=== PATIENT | female | born 1935 | race Caucasian/White ===

== ENCOUNTER 2020-01-12 15:56 | Outpatient (CLI) | payer OTHER, SELFPAY ==
--- NOTE | ~2020-01-12 | CT_ITS ---
EXAMINATION:CT chest wo con DATE: 01/12/2020 16:17 INDICATION: Shortness of breath. Atherosclerosis of aorta. TECHNIQUE: Computed tomography (CT) of the chest was performed without intravenous contrast. Automate d exposure control and iterative reconstruction technique were employed. The dose-length product (DLP ) was 130.25 mGy-cm. COMPARISON: CT abdomen and pelvis 03/24/2018 FINDINGS: There is mild emphysema. There is mild atelectasis bilaterally. Calcified right lung nodule s and calcified right hilar lymph nodes are consistent with old granulomatous disease. No pleural eff usion. The heart size is normal. There are coronary artery calcifications. No pericardial effusion. 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 Calcifications in the spleen ar e consistent with old granulomatous disease. There is mild aortic atherosclerosis. No aneurysm. There is an 8 mm hemorrhagic cyst in left kidney. There is thoracic kyphosis and mild spondylosis. IMPRESSION: 1. Mild emphysema. 2. Mild aortic atherosclerosis. Reviewed, dictated and finalized at location A.
== END 2020-01-12 15:57 | disposition home or self-care (01) ==
PROVIDERS: PCP Family Medicine; Visit Provider Physician Assistant
DX: I70.0 Atherosclerosis of aorta (principal); R06.02 Shortness of breath; Z87.891 Personal history of nicotine dependence; J43.9 Emphysema, unspecified
CPT/HCPCS: 71250

== ENCOUNTER 2020-02-24 09:32 | Outpatient (CLI) | payer OTHER, SELFPAY ==
[2020-02-24 10:00] VITALS: PULSE 84; O2SAT 92
[2020-02-24 10:05] VITALS: PULSE 92; O2SAT 86
[2020-02-24 10:10] VITALS: PULSE 95; O2SAT 87
[2020-02-24 10:15] VITALS: PULSE 83; O2SAT 90
[2020-02-24 10:30] VITALS: PULSE 86; O2SAT 91
--- NOTE | 2020-02-24 10:58 | HOMEO2EVAL ---
Home Oxygen Evaluation RC: Home Oxygen (O2) Evaluation Start: 02/24/20 10:54 Freq: Status: Active Protocol: RPE Activity Type Activity Date Activity User E-Sign Co-Sign Detail Recorded Client Recorded Date Recorded By Document 02/24/20 10:00 DJO [email or web address] 02/24/20 10:58 DJO Document 02/24/20 10:05 DJO [email or web address] 02/24/20 10:58 DJO Document 02/24/20 10:10 DJO [email or web address] 02/24/20 10:58 DJO Document 02/24/20 10:15 [email or web address] [email or web address] 02/24/20 10:58 DJO Document 02/24/20 10:30 [email or web address] [email or web address] 02/24/20 10:58 DJO 02/24/20 02/24/20 02/24/20 10:00 10:05 10:10 Home O2 Evaluation Test Phase Resting Exercise Exercise Oxygen Delivery Room Air Room Air Nasal Cannula Oxygen Flow Rate (L/min) 1 Pulse Oximetry (90-100 %) 92 86 L 87 L Pulse Rate (60-100 beats/min) 84 92 95 Activity Tolerance Rating of Perceived Dyspnea (PD) +2 Mild, Some Difficulty, Noticeable to the Observer Ambulation Distance (feet) Treatment Charges O2 Evaluation 02/24/20 02/24/20 10:15 10:30 Home O2 Evaluation Test Phase Exercise Resting Oxygen Delivery Nasal Cannula Room Air Oxygen Flow Rate (L/min) 2 Pulse Oximetry (90-100 %) 90 91 Pulse Rate (60-100 beats/min) 83 86 Activity Tolerance Fair Rating of Perceived Dyspnea (PD) Ambulation Distance (feet) 300 Treatment Charges
--- NOTE | 2020-02-26 12:39 | WPDPFTINT ---
PFT Interpretation PFT Interpretation: This PFT met all criteria for ATS standards and reproducibility FEV/FVC post bronchodilator 63% of predicted FEV1 51% or 0.86 liters FVC 54% or 1.36 liters TLC 78%of predicted or 3.68 liters RV 119% RV/TLC 66% DLCO 47% when adjusted for alveolar volume but not adjusted for hemoglobin Flow volume loops showed significant expiratory coving Impression: Moderate to severe airflow obstruction with a restrictive ventilatory defect also present. Air trapping and moderately reduced diffusion capacity also present. This is a combined obstructive/restrictive ventilatory defect. Clinical correlation is advised.
== END 2020-02-24 09:33 | disposition home or self-care (01) ==
LOC: ANHPFT 09:34
PROVIDERS: PCP Family Medicine; Visit Provider Internal Medicine Critical Care Medicine
DX: J44.9 Chronic obstructive pulmonary disease, unspecified (principal); R94.2 Abnormal results of pulmonary function studies
CPT/HCPCS: 94060; 94618; 94726; 94729

== ENCOUNTER 2020-02-26 08:30 | Outpatient (CLI) | payer OTHER, SELFPAY ==
--- NOTE | ~2020-02-26 | US_ITS ---
EXAMINATION: US venous doppler [facility] DATE: 02/26/2020 10:13 INDICATION: Acute embolism and thrombosis of unspecified deep veins of left lower limb. TECHNIQUE: Grayscale ultrasound images without and with compression and Doppler ultrasound images of the left lower extremity veins were obtained. COMPARISON: Ultrasound 07/29/2019 FINDINGS: The visualized portions of left common femoral vein, profunda (deep) femoral vein, femoral vein, popl iteal vein, peroneal veins, posterior tibial veins, and greater saphenous vein outflow are patent. IMPRESSION: 1. No deep venous thrombosis. Reviewed, dictated and finalized at location E.
== END 2020-02-26 08:31 | disposition home or self-care (01) ==
PROVIDERS: PCP Family Medicine; Visit Provider Physician Assistant
DX: I82.402 Acute embolism and thrombosis of unspecified deep veins of left lower extremity (principal)
CPT/HCPCS: 93971

== ENCOUNTER 2020-03-23 11:06 | Outpatient (CLI) | payer OTHER, SELFPAY ==
--- NOTE | ~2020-03-23 | XR_ITS ---
EXAMINATION: XR ankle RT min 3V DATE: 03/23/2020 11:29 INDICATION: Right ankle pain. TECHNIQUE: 4 views of right ankle were obtained. COMPARISON: Right ankle radiographs 07/29/2019 FINDINGS: Bone alignment is normal. No fracture. Joint spaces are normal. There is an enthesophyte at plantar aspect of calcaneal tuberosity. There is ankle soft tissue swelling. IMPRESSION: 1. No fracture. Reviewed, dictated and finalized at location A. IMPRESSION: 1. No fracture.
--- NOTE | ~2020-03-23 | US_ITS ---
EXAMINATION: US venous doppler LE RT EXAM DATE: 03/23/2020 11:55 INDICATION: Right leg pain and swelling. TECHNIQUE: Multiple grayscale, color flow and Doppler images of the right lower extremity deep venous system were obtained and reviewed. Comparison is made to prior examination from 07/29/2019. FINDINGS: The right common femoral, femoral and profunda veins demonstrate normal color flow, respira tory variation, augmentation and compressibility. Compressibility, color flow confirmed within the r ight popliteal, posterior tibial, peroneal, and proximal greater saphenous veins. There is thrombus w ithin the distal aspect of the greater saphenous vein below the knee. There is a Gaston's cyst measuri ng 4.4 x 1.2 x 2.1 cm. IMPRESSION: 1. Right greater saphenous below knee superficial venous thrombosis. 2. No right lower extremity deep venous thrombosis. Reviewed, dictated and finalized at location B.
== END 2020-03-23 11:07 | disposition home or self-care (01) ==
PROVIDERS: PCP Family Medicine; Visit Provider Family Medicine
DX: M25.579 Pain in unspecified ankle and joints of unspecified foot (principal); M79.669 Pain in unspecified lower leg; M79.89 Other specified soft tissue disorders; I82.811 Embolism and thrombosis of superficial veins of right lower extremity
CPT/HCPCS: 73610; 93971

== ENCOUNTER 2020-11-23 10:01 | Outpatient (CLI) | payer OTHER, SELFPAY ==
--- NOTE | ~2020-11-23 | US_ITS ---
EXAMINATION: US venous doppler LE RT DATE: 11/23/2020 10:38 INDICATION: Right lower limb swelling. TECHNIQUE: Grayscale ultrasound images without and with compression and Doppler ultrasound images of the right lower extremity veins were obtained. COMPARISON: Ultrasound 03/23/2020 FINDINGS: The visualized portions of right common femoral vein, profunda (deep) femoral vein, femoral vein, pop liteal vein, peroneal veins, posterior tibial veins, and greater saphenous vein outflow are patent. IMPRESSION: 1. No deep venous thrombosis. Reviewed, dictated and finalized at location B.
== END 2020-11-23 10:02 | disposition home or self-care (01) ==
PROVIDERS: PCP Family Medicine; Visit Provider Physician Assistant
DX: M79.89 Other specified soft tissue disorders (principal); Z86.718 Personal history of other venous thrombosis and embolism
CPT/HCPCS: 93971

== ENCOUNTER 2021-01-29 11:13 | Outpatient (CLI) | payer OTHER, SELFPAY ==
[2021-01-29 11:51] LABS: Basophils Percent Auto 0.6 % (0.2-1.2); Eosinophils Absolute Auto 0.3 K/mm3 (0-0.3); Eosinophils Percent Auto 3.8 % (0-4.4); Hematocrit 37.3 % (37.0-47.0); Hemoglobin 11.6 g/dL (12.0-15.0); Immature Granulocyte Absolute 0.02 K/mm3 (0.00-0.031); Immature Granulocyte Percent A 0.3 % (0-0.5); Lymphocytes Absolute Auto 2.31 K/mm3 (0.9-3.2); Lymphocytes Percent Auto 32.1 % (18.3-44.2); Mean Corpuscular HGB Conc 31.1 g/dl (32-36); Mean Corpuscular Hemoglobin 31.2 pg (26-34); Mean Corpuscular Volume 100.3 fl (80-100); Mean Platelet Volume 9.8 fl (7.4-10.4); Monocytes Absolute Auto 0.6 K/mm3 (0.1-0.6); Monocytes Percent Auto 7.6 % (2.6-8.5); Neutrophils Percent Auto 55.6 % (45.5-73.1); Platelet Count Result 225 k/mm3 (150-375); Red Blood Count 3.72 M/mm3 (4.2-5.4); Red Cell Distribution Width 14.1 % (11.5-14.5); White Blood Count 7.2 K/mm3 (4.5-10.0)
[2021-01-29 12:02] LABS: Alanine Aminotransferase 14 U/L (4-35); Albumin Level 4.2 g/dL (3.5-5.1); Alkaline Phosphatase 66 U/L (38-126); Anion Gap 10 mmol/L (8-16); Aspartate Amino Transferase 23 U/L (14-36); Bilirubin,Total < 0.1 mg/dL (0.2-1.3); Blood Urea Nitrogen 57 mg/dL (7-17); Calcium 9.2 mg/dL (8.4-10.2); Carbon Dioxide 26 mmol/L (22-30); Chloride 108 mmol/L (98-107); Cholesterol 199 mg/dL (0-200); Estimated Glomerular Filt Rate 29; Glucose 111 mg/dL (65-105); HDL Direct 40 mg/dL; Potassium 4.8 mmol/L (3.4-5.0); Sodium 144 mmol/L (137-145); Triglycerides 122 mg/dL (<150)
[2021-01-29 12:14] LABS: LDL Cholesterol Direct 104 mg/dL
[2021-02-02 11:35] LABS: Vitamin D 1,25 (OH)2 Total 32 pg/mL (18-72); Vitamin D2 1,25 (OH)2 <8 pg/mL; Vitamin D3 1,25 (OH)2 32 pg/mL
== END 2021-01-29 11:14 | disposition home or self-care (01) ==
PROVIDERS: PCP Family Medicine; Visit Provider Physician Assistant
DX: E55.9 Vitamin D deficiency, unspecified (principal); I10 Essential (primary) hypertension; Z13.220 Encounter for screening for lipoid disorders
CPT/HCPCS: 36415; 80053; 80061; 82652; 85025

== ENCOUNTER 2021-03-22 13:15 | Outpatient (CLI) | payer OTHER, SELFPAY ==
--- NOTE | ~2021-03-22 | XR_ITS ---
MODIFIED ESOPHAGRAM HISTORY: Dysphagia. TECHNIQUE: Modified barium esophagram was performed by speech pathologist under radiologist fluorosco pic guidance. This was recorded on tape. The exam was reviewed on 03/22/2021 15:37 CDT. The DAP for this procedure was 2.7 Gycm2. Fluoroscopy time is 4.2 minutes. FINDINGS: Lateral projection of the cervical spine demonstrates normal alignment. Oral stage is wit hin normal limits. During pharyngeal stage there is reduced tongue base retraction, pharyngeal squeez e as well as vallecular, piriform sinus and pharyngeal wall residue. There is no laryngeal penetratio n or aspiration. There is abnormal cricopharyngeal dysfunction. There is esophageal and pharyngeal ba ckflow.. IMPRESSION: 1: Abnormal residue during the pharyngeal stage with cricopharyngeal dysfunction and esophageal/phary ngeal backflow. No laryngeal penetration or aspiration identified. 2: Please refer to speech pathologist report for additional detail. Reviewed, dictated and finalized at location A. IMPRESSION: 1: Abnormal residue during the pharyngeal stage with cricopharyngeal dysfunctio n and esophageal/pharyngeal backflow. No laryngeal penetration or aspiration id entified. 2: Please refer to speech pathologist report for additional detail.
--- NOTE | 2021-03-22 17:27 | STOPEVAL ---
MODIFIED BARIUM SWALLOW EVALUATION: Thank you for referring Codie Duarte to [facility].? Attending Provider: Roni Hernandez, MIS DIRECTOR Evaluation Information Problem Diagnosis dysphagia; I choke a lot . Onset It started about a year ago and its getting worse Prior Level of Function Prior Swallow Level Prior Intake Method Oral Prior Diet Regular (Level 7 Diet) Prior Liquid Consistency Thin (Level 0 Diet) Modified Barium Swallow Evaluation Recent Swallowing History Reports Dysphagia Yes History of Dysphagia Yes: lump in throat 20 years ago- went away Other Related History pt denied having any significant medical history; reported having GERD History of Pneumonia No Reported Difficult Consistencies Saliva,Thin Liquids,Solids Intake Method Prior to Swallow Oral Evaluation Diet Prior to Swallow Evaluation Regular, Level 7 Liquid Consistency Prior to Swallow Thin (0) Evaluation Consistency Thin Other Amount via straw and cup Oral Preparatory Symptoms Within Functional Limits Oral Phase Symptoms Within Functional Limits Pharyngeal Phase Symptoms Coating/Pharyngeal Marley, Cricopharyngeal Dysfunction, Reduced Laryngeal Elevation, Reduced Lingual Pressure, Residue in [place],Residue/ Pyriform Sinus Severity of Vallecular Residue Moderate - 25-50 % Epiglottic Ligament Covered Severity of Pyriform Sinus Residue Moderate - 25-50 % Up Wall to Half Full 8 Point Laryngeal Penetration-Aspiration Material Does Not Enter Airway Scale Pharyngeal Phase Comments Pt presented with significant/ severe UES/cricopharyngeal dysfunction. Contents could not be cleared immediately from pharynx without many repeated dry swallows; altering head positions did not provide any assistance with clearing of the residual. Backflow occurred. No laryngeal penetration or aspiration occurred but risk is present. Cervical/Esophageal Symptoms Esophageal/Pharyngeal Backflow Solid Consistency Other Amount fruit cocktail and cracker Method of Presentation Spoon Oral Preparatory Symptoms Within F
== END 2021-03-22 13:16 | disposition home or self-care (01) ==
PROVIDERS: PCP Family Medicine; Visit Provider Nurse Practitioner Family
DX: R13.10 Dysphagia, unspecified (principal)
CPT/HCPCS: 92611

== ENCOUNTER 2021-04-24 12:52 | Outpatient (CLI) | payer OTHER, SELFPAY ==
--- NOTE | ~2021-04-24 | DEXA_ITS ---
Bone Density Report Name: Codie Duarte V Age: 85 Sex: Female Ethnicity: White Date of : 1935 Indication: postmenopausal osteoporosis; monitoring treatment; height loss; prior fracture; asthma or emphysema; hysterectomy; Referring Provider: Delmi Crow Study: Bone densitometry was performed. Exam Date: April 24, 2021 Accession number: [id number] Bone Density: Region BMD T-score Z-score Classification AP Spine (L1, L2, L4) 0.735 -2.7 0.1 Osteoporosis Femoral Neck (Left) 0.497 -3.2 -0.7 Osteoporosis Total Hip (Left) 0.581 -3.0 -0.6 Osteoporosis Total Hip Bilateral Avg 0.577 -3.0 -0.7 Osteoporosis Femoral Neck (Right) 0.449 -3.6 -1.1 Osteoporosis Total Hip (Right) 0.572 -3.0 -0.7 Osteoporosis World Health Organization criteria for BMD impression classify patients as: Normal (T-score at or above -1.0), Osteopenia (T-score between -1.0 and -2.5), or Osteoporosis (T-score at or below -2.5). 10-year Fracture Risk: FRAX not reported because: Some T-score for Spine Total or Hip Total or Femoral Neck at or below -2.5 Treated for osteoporosis Previous Exams: Region Exam Age BMD T-score BMD Change BMD Change Date g/cm2 vs Baseline vs Previous AP Spine(L1, L2, L4) 04/24/2021 85 0.735 -2.7 0.011(1.6%)# 0.055(8.0%)# 12/10/2011 76 0.680 -3.2 -0.043(-6.0%)# -0.043(-6.0%)# 09/26/2009 74 0.724 -2.8 Total Hip(Left) 04/24/2021 85 0.581 -3.0 -0.066(-10.2%) -0.049(-7.8%)# 12/10/2011 76 0.630 -2.6 -0.016(-2.5%)# -0.016(-2.5%)# 09/26/2009 74 0.647 -2.4 Total Hip(Right) 04/24/2021 85 0.572 -3.0 -0.090(-13.6%) -0.017(-2.8%)# 12/10/2011 76 0.589 -2.9 -0.073(-11.0%) -0.073(-11.0%) 09/26/2009 74 0.662 -2.3 *Denotes significance at 95% confidence level, LSC for AP Spine = 0.022 g/cm2, LSC for Total Hip = 0.027 g/cm2 Clinical Information Provided by Patient: Has had a low trauma fracture Is being treated for osteoporosis Has used the following medications: Vitamin D, Calcium Has the following medical conditions: Asthma or Emphysema, Hysterectomy Patient maximum height was 65 Menopause Age: 38 Onset of menses at age 15 Number of children 6 Impression: The patient has established osteoporosis, based on the Right Femoral Neck T-score and the existence of a prior fracture. The patient has risk factors, including: previous fracture. No significant bone loss was observed. Discussion: PATIENT UNDER TREATMENT WITH NO S
== END 2021-04-24 12:53 | disposition home or self-care (01) ==
LOC: ANHIMG 12:54
PROVIDERS: PCP Family Medicine; Visit Provider Physician Assistant
DX: Z78.0 Asymptomatic menopausal state (principal); M81.0 Age-related osteoporosis without current pathological fracture
CPT/HCPCS: 77080

== ENCOUNTER 2021-05-06 12:09 | Outpatient (CLI) | payer OTHER, SELFPAY ==
[2021-05-06 12:49] LABS: Hemoglobin 10.7 g/dL (12.0-15.0); Mean Corpuscular HGB Conc 31.5 g/dl (32-36); Mean Corpuscular Hemoglobin 32.1 pg (26-34); Mean Corpuscular Volume 102.1 fl (80-100); Mean Platelet Volume 9.5 fl (7.4-10.4); Platelet Count Result 218 k/mm3 (150-375); Red Blood Count 3.33 M/mm3 (4.2-5.4); Red Cell Distribution Width 13.9 % (11.5-14.5); White Blood Count 7.2 K/mm3 (4.5-10.0)
[2021-05-06 13:01] LABS: Albumin Level 4.2 g/dL (3.5-5.1); Anion Gap 9 mmol/L (8-16); Blood Urea Nitrogen 66 mg/dL (7-17); Calcium 9.1 mg/dL (8.4-10.2); Carbon Dioxide 25 mmol/L (22-30); Chloride 105 mmol/L (98-107); Estimated Glomerular Filt Rate 22; Glucose 99 mg/dL (65-110); Phosphorus 4.6 mg/dL (2.5-4.5); Potassium 5.1 mmol/L (3.4-5.0); Sodium 139 mmol/L (137-145)
[2021-05-06 13:04] LABS: Add Urine Microscopic? YES; Appearance Urine Cloudy (Clear); Bilirubin Urine Negative (Negative); Blood Urine Negative (Negative); Color Urine Yellow (Yellow); Glucose Urine UA Negative (Negative); Ketones Urine Negative (Negative); Leukocyte Esterase Ur 3+ LEU/UL (NEGATIVE); Nitrate Urine Negative (Negative); Protein Urine 1+ mg/dL (Negative); Specific Grav Ur 1.011 (1.001-1.035); Squamous Epithelial Cell Urine Many /hpf (Few); Total Protein Urine Random 14 mg/dL; Transitional Epi Cells Urine Rare /hpf (None Seen); Ur Ttl Prot Creatinine Ratio 0.24 mg/mg (0-0.20); Urobilinogen Urine Negative mg/dL (<2.0); WBC Urine >75 /hpf (0-3)
[2021-05-06 13:10] LABS: Complement C3 118 mg/dL (88-165)
[2021-05-06 13:29] LABS: Parathyroid Intact 190.6 pg/mL (7.5-53.5)
[2021-05-06 14:09] LABS: Erythrocyte Sedimentation Rate 69 mm/hr (0-20)
[2021-05-08 11:14] LABS: Kappa\\Lambda Light Chains 1.52 (0.26-1.65); Lambda Light Chain 46.6 mg/L (5.7-26.3)
[2021-05-09 13:56] LABS: Complement Total CH50 >60 U/mL (31-60)
== END 2021-05-06 12:10 | disposition home or self-care (01) ==
PROVIDERS: PCP Family Medicine; Visit Provider Internal Medicine Nephrology
DX: N18.4 Chronic kidney disease, stage 4 (severe) (principal)
CPT/HCPCS: 36415; 80069; 81001; 82570; 83883; 83970; 84156; 85027; 85652; 86038; 86160; 86162; 86334

== ENCOUNTER 2021-05-20 13:51 | Outpatient (CLI) | payer OTHER, SELFPAY ==
--- NOTE | ~2021-05-20 | US_ITS ---
US renal BI 05/20/2021 16:00 Procedure: Realtime transabdominal ultrasound of the kidneys and bladder. Indication: Chronic kidney disease. Comparison: CT dated 03/24/2018 Findings: There are multiple bilateral renal cysts. Largest right renal cyst measures 5.4 cm. Largest left renal cyst measures 2.4 cm. No significant hydronephrosis. There is increased cortical echotext ure bilaterally, consistent with chronic medical renal disease. There is left renal atrophy. The righ t kidney measures 8.3 cm cm and left kidney measures 6.7 cm cm. Bladder within normal limits. Bilate ral ureteral jets demonstrated. Impression: 1: Renal atrophy with multiple bilateral renal cysts. Increased renal cortical echotexture, consisten t with chronic medical renal disease. Reviewed, dictated and finalized at location B. Impression: 1: Renal atrophy with multiple bilateral renal cysts. Increased renal cortical echotexture, consistent with chronic medical renal disease.
== END 2021-05-20 13:52 | disposition home or self-care (01) ==
PROVIDERS: PCP Family Medicine; Visit Provider Internal Medicine Nephrology
DX: N18.4 Chronic kidney disease, stage 4 (severe) (principal); N28.1 Cyst of kidney, acquired
CPT/HCPCS: 76775

== ENCOUNTER 2021-05-21 03:01 | Day surgery (SDC) | payer OTHER, SELFPAY ==
[2021-05-13 10:13] VITALS: BMI 27.4
[2021-05-21 06:54] VITALS: BP 120/62; PULSE 75; RESP 20; TEMP 35.7; O2SAT 96; BMI 28.1
[2021-05-21] MEDS: LACTATED RINGERS 1,000 ML 150 ML IV CONT (07:19)
--- NOTE | 2021-05-21 07:21 | WPDANESEPPF ---
Anes - Initial Pre Proc Eval Procedure: Operation Date: 05/21/21 08:00 Proposed Procedures p Esophagogastroduodenoscopy - Brent Kraus MD Date/Time: 05/21/21 07:21 Surgeon: Brent Kraus MD Pre Op Diagnosis: dysphagia Patient Data Age: 86 Gender: F Height: 1.63 m Weight: 74.5 kg Last Vital Signs Temp 35.7 C L 05/21/21 06:54 Pulse 75 05/21/21 06:54 Resp 20 05/21/21 06:54 BP 120/62 05/21/21 06:54 Pulse Ox 96 05/21/21 06:54 Allergies Allergy/AdvReac Type Severity Reaction Status Date / Time Estrogens Allergy Severe Swelling Verified 05/21/21 06:52 alendronate sodium AdvReac Unknown vomit Verified 05/21/21 06:52 ibandronate sodium AdvReac Unknown nausea Verified 05/21/21 06:52 raloxifene AdvReac Unknown nausea Verified 05/21/21 06:52 sulfamethizole AdvReac Unknown Nausea And Verified 05/21/21 06:52 Vomiting trimethoprim AdvReac Unknown Nausea And Verified 05/21/21 06:52 Vomiting Home Medications Medication Instructions Recorded Confirmed Type melatonin 5 mg capsule 5 mg PO HS cap 06/07/19 05/13/21 History aspirin 81 mg chewable tablet 81 mg PO DAILY 09/19/20 05/13/21 History tolterodine 2 mg tablet 2 mg PO Q12H #180 tablet 10/29/20 05/13/21 Rx tiotropium 2.5 mcg-olodaterol 2.5 2 puff INHALATION DAILY 11/15/20 05/13/21 History mcg/actuation mist for inhalation apixaban 2.5 mg tablet 2.5 mg PO BID #60 tablet 11/29/20 05/13/21 Rx ropinirole 0.5 mg tablet 0.5 mg PO .qhs #90 tablet 12/06/20 05/13/21 Rx metoprolol succinate 25 mg 25 mg PO DAILY #90 tablet 03/06/21 05/13/21 Rx tablet,extended release 24 hr omeprazole 20 mg capsule,delayed 20 mg PO DAILY #90 cap 03/06/21 05/13/21 Rx release duloxetine 30 mg capsule,delayed 30 mg PO DAILY #90 cap 03/08/21 05/13/21 Rx release fluoxetine 40 mg capsule 40 mg PO DAILY #90 cap 03/08/21 05/13/21 Rx furosemide 20 mg tablet See Rx Instructions .ROUTE 04/26/21 05/13/21 Rx .COMPLEX #90 tablet hydrocodone 10 mg-acetaminophen 1 tablet PO Q8H PRN #90 tablet 05/06/21 05/13/21 Rx 325 mg tablet lisinopril 20 mg PO DAILY 05/13/21 05/13/21 History Patient hx anesthesia problems: none Family hx anesthesia problems: none Results Review: All pre-operative results and documents have been reviewed as part of the pre-operative evaluation. [facility] Past Medical History Medical History Chronic pain disorder CKD (chronic kidney disease) stage 3, GFR 30-59 ml/min COPD (chronic obstructive pulmonary disease) GERD (gastroesophageal reflux disease) History of fracture of left ankle History of nicotine dependence Hypertensive kidney disease with chronic kidney disease Incontinence in female Major depressive disorder, recurrent, moderate Mixed hyperlipidemia Old [place] (myocardial infarction) Opioid dependence Osteoporosis PUD (peptic ulcer disease) Surgical History Surgical History Status post open reduction with internal fixation (ORIF) of fracture of ankle Family History Family History Mother Cerebrovascular accident, Onset Age: 61 Patient's mother is Other Family history of arthritis Hypertension Social History Social History Social History: Smoking packs per day: 1 Smoking cigarettes per day: 20.0 Years smoked: 25 Smoking pack-years: 25.00 Smoking status: Former smoker Tobacco type: cigarettes Second hand tobacco smoke exposure: No Smoking end date: 08/03/85 Alcohol intake: former Substance use: never Substance use type: does not use Living arrangements: with family Gender identity (if verbalized by the patient): Female Sexual Orientation (if Verbalized by the Patient): Straight or Heterosexual Spiritual care concerns: No
--- NOTE | 2021-05-21 07:52 | WPDHPUPDATE1 ---
History and Physical Update Update Date/Time: 05/21/21 07:52 History and Physical has been reviewed, including an updated exam of the patient. There are NO changes in the patient's condition. Risks, benefits, and alternatives have been discussed and questions answered. Patient agrees to proceed with procedure.
[2021-05-21] MEDS: BENZOCAINE (*SP) 60 ML SPRAY CAN (HURRICAINE) 1 SPRAY MUCOUS MEM (08:00)
[2021-05-21 08:11] VITALS: BP 95/46; PULSE 64; RESP 22; O2SAT 100
[2021-05-21 08:21] VITALS: BP 111/60; PULSE 67; RESP 21; O2SAT 100
[2021-05-21 08:31] VITALS: BP 102/48; PULSE 64; RESP 18; O2SAT 100
== END 2021-05-21 08:42 | disposition home or self-care (01) ==
PROVIDERS: PCP Family Medicine; Visit Provider Internal Medicine Gastroenterology
PROC: 0DJ08ZZ Inspection of Upper Intestinal Tract, Via Natural or Artificial Opening Endoscopic (ICD-10-PCS; CPT 43235; principal; 2021-05-21 08:00)
DX: R13.10 Dysphagia, unspecified (principal); K20.90 Esophagitis, unspecified without bleeding; K29.70 Gastritis, unspecified, without bleeding; K21.9 Gastro-esophageal reflux disease without esophagitis; K44.9 Diaphragmatic hernia without obstruction or gangrene; K27.9 Peptic ulcer, site unspecified, unspecified as acute or chronic, without hemorrhage or perforation; I12.9 Hypertensive chronic kidney disease with stage 1 through stage 4 chronic kidney disease, or unspecified chronic kidney disease; N18.30 Chronic kidney disease, stage 3 unspecified; J44.9 Chronic obstructive pulmonary disease, unspecified; J96.10 Chronic respiratory failure, unspecified whether with hypoxia or hypercapnia; E78.2 Mixed hyperlipidemia; M81.0 Age-related osteoporosis without current pathological fracture; G89.29 Other chronic pain; F33.8 Other recurrent depressive disorders; F11.20 Opioid dependence, uncomplicated; Z79.01 Long term (current) use of anticoagulants; Z87.891 Personal history of nicotine dependence; Z86.718 Personal history of other venous thrombosis and embolism; Z99.81 Dependence on supplemental oxygen
CPT/HCPCS: 43248; 43239; 88305; J2704; J7120

== ENCOUNTER 2021-06-19 14:09 | Outpatient (CLI) | payer OTHER, SELFPAY ==
[2021-06-19 15:24] LABS: Anion Gap 6 mmol/L (8-16); Blood Urea Nitrogen 49 mg/dL (7-17); Calcium 9.1 mg/dL (8.4-10.2); Carbon Dioxide 30 mmol/L (22-30); Chloride 103 mmol/L (98-107); Estimated Glomerular Filt Rate 25; Glucose 98 mg/dL (65-110); Phosphorus 4.3 mg/dL (2.5-4.5); Sodium 139 mmol/L (137-145)
[2021-06-19 15:29] LABS: Add Urine Microscopic? YES; Appearance Urine Cloudy (Clear); Bacteria Urine Trace /hpf; Bilirubin Urine Negative (Negative); Blood Urine Negative (Negative); Color Urine Yellow (Yellow); Glucose Urine UA Negative (Negative); Ketones Urine Negative (Negative); Leukocyte Esterase Ur 3+ LEU/UL (NEGATIVE); Mucus Urine Rare /lpf; Nitrate Urine Negative (Negative); Protein Urine Negative (Negative); Squamous Epithelial Cell Urine Many /hpf (Few); Urobilinogen Urine Negative mg/dL (<2.0); WBC Urine 31-50 /hpf (0-3)
== END 2021-06-19 14:10 | disposition home or self-care (01) ==
LOC: ANHLAB 14:24
PROVIDERS: PCP Family Medicine; Visit Provider Internal Medicine Nephrology
DX: N18.4 Chronic kidney disease, stage 4 (severe) (principal)
CPT/HCPCS: 36415; 80069; 81001

== ENCOUNTER 2021-07-03 11:53 | Outpatient (NON) | payer OTHER, SELFPAY ==
[2021-07-08 17:11] LABS: Albumin 46 %; Measured Kappa Chains 1.29 mg/dL (<2.00); Measured Lambda Chains <1.00 mg/dL (<2.00); Pro/Creat Ratio 147 mg/g creat (<=114); Total Kappa Chains 23.22 mg/24 h
[2021-07-12 13:59] LABS: Protein,total, 24 Hr Ur 162 mg/24h
== END 2021-07-03 11:54 | disposition home or self-care (01) ==
LOC: ANHLAB 11:55
PROVIDERS: PCP Family Medicine; Visit Provider Internal Medicine Nephrology
DX: N18.4 Chronic kidney disease, stage 4 (severe) (principal)
CPT/HCPCS: 86335

== ENCOUNTER 2021-09-11 14:49 | Outpatient (CLI) | payer OTHER, SELFPAY ==
[2021-09-11 16:31] LABS: Add Urine Microscopic? YES; Appearance Urine Cloudy (Clear); Bacteria Urine 1+ /hpf; Bilirubin Urine Negative (Negative); Color Urine Yellow (Yellow); Glucose Urine UA Negative (Negative); Ketones Urine Negative (Negative); Leukocyte Esterase Ur 3+ LEU/UL (Negative); Nitrate Urine Positive (Negative); Protein Urine Negative (Negative); RBC Urine 0-2 /hpf (0-2); Specific Grav Ur 1.012 (1.001-1.035); Squamous Epithelial Cell Urine Occasional /hpf (Few); Urobilinogen Urine Negative mg/dL (<2.0); WBC Urine >75 /hpf
[2021-09-11 16:32] LABS: Blood Urine Negative (Negative)
[2021-09-11 16:35] LABS: Albumin Level 3.7 g/dL (3.5-5.1); Anion Gap 4 mmol/L (8-16); Blood Urea Nitrogen 29 mg/dL (7-17); Carbon Dioxide 25 mmol/L (22-30); Chloride 107 mmol/L (98-107); Estimated Glomerular Filt Rate 31; Glucose 98 mg/dL (65-110); Phosphorus 3.8 mg/dL (2.5-4.5); Potassium 4.4 mmol/L (3.4-5.0); Sodium 136 mmol/L (137-145)
== END 2021-09-11 14:50 | disposition home or self-care (01) ==
PROVIDERS: PCP Family Medicine; Visit Provider Internal Medicine Nephrology
DX: N18.4 Chronic kidney disease, stage 4 (severe) (principal)
CPT/HCPCS: 36415; 80069; 81001; 87077; 87086; 87186

== ENCOUNTER 2021-09-13 14:08 | Outpatient (CLI) | payer OTHER, SELFPAY ==
[2021-09-13 14:51] LABS: Add Urine Microscopic? YES; Appearance Urine Cloudy (Clear); Bacteria Urine Trace /hpf; Bilirubin Urine Negative (Negative); Blood Urine Negative (Negative); Color Urine Yellow (Yellow); Glucose Urine UA Negative (Negative); Ketones Urine Negative (Negative); Leukocyte Esterase Ur 3+ LEU/UL (NEGATIVE); Mucus Urine Rare /lpf; Nitrate Urine Positive (Negative); Protein Urine Negative (Negative); Squamous Epithelial Cell Urine Few /hpf (Few); Urobilinogen Urine Negative mg/dL (<2.0); WBC Clumps Urine Present /HPF; WBC Urine >75 /hpf (0-3)
== END 2021-09-13 14:09 | disposition home or self-care (01) ==
PROVIDERS: PCP Family Medicine; Visit Provider Internal Medicine Nephrology
DX: N39.0 Urinary tract infection, site not specified (principal)
CPT/HCPCS: 81001; 87077; 87086; 87186

== ENCOUNTER 2021-09-20 13:58 | Outpatient (CLI) | payer OTHER, SELFPAY ==
--- NOTE | ~2021-09-20 | XR_ITS ---
XR chest 2V DATE: 09/20/2021 14:19 INDICATION: Shortness of breath TECHNIQUE: PA and lateral views COMPARISON: 01/12/2020 CT chest 05/24/2019 PA and lateral chest FINDINGS: Heart size appears within normal limits. There is aortic mild calcification and unfolding. No pulmonary infiltrate or consolidation, pleural effusion or pulmonary vascular congestion or pneumo thorax. There is diffuse osteopenia. There is thoracic kyphoscoliosis. IMPRESSION: No active cardiopulmonary disease Reviewed, dictated and finalized at location B. 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
== END 2021-09-20 13:59 | disposition home or self-care (01) ==
PROVIDERS: PCP Family Medicine; Visit Provider Nurse Practitioner Family
DX: R05.9 Cough, unspecified (principal); R06.02 Shortness of breath
CPT/HCPCS: 71046

== ENCOUNTER 2022-01-15 14:27 | Outpatient (CLI) | payer OTHER, SELFPAY ==
[2022-01-15 15:07] LABS: Hematocrit 37.7 % (37.0-47.0); Hemoglobin 11.7 g/dL (12.0-15.0); Mean Corpuscular Hemoglobin 30.7 pg (26-34); Mean Platelet Volume 9.4 fl (7.4-10.4); Platelet Count Result 253 k/mm3 (150-375); Red Blood Count 3.81 M/mm3 (4.2-5.4); White Blood Count 7.1 K/mm3 (4.5-10.0)
[2022-01-15 15:15] LABS: Appearance Urine Cloudy (Clear); Bilirubin Urine Negative (Negative); Color Urine Yellow (Yellow); Glucose Urine UA Negative (Negative); Ketones Urine Negative (Negative); Leukocyte Esterase Ur 2+ LEU/UL (Negative); Nitrate Urine Negative (Negative); Protein Urine Negative (Negative); Specific Grav Ur 1.015 (1.001-1.035); Urobilinogen Urine 0.2 mg/dL (<2.0)
[2022-01-15 15:18] LABS: Bacteria Urine Trace /hpf; Mucus Urine Rare /lpf; Squamous Epithelial Cell Urine Many /hpf (Few); WBC Urine >75 /hpf
[2022-01-15 15:20] LABS: Add Urine Microscopic? YES; Albumin Level 4.2 g/dL (3.5-5.1); Anion Gap 6 mmol/L (8-16); Blood Urea Nitrogen 42 mg/dL (7-17); Blood Urine Trace-Intact (Negative); Calcium 8.8 mg/dL (8.4-10.2); Carbon Dioxide 29 mmol/L (22-30); Chloride 105 mmol/L (98-107); Estimated Glomerular Filt Rate 25; Glucose 87 mg/dL (65-110); Phosphorus 4.6 mg/dL (2.5-4.5); Potassium 4.5 mmol/L (3.4-5.0); Sodium 140 mmol/L (137-145)
[2022-01-15 15:33] LABS: Complement C3 143 mg/dL (88-165)
[2022-01-15 15:45] LABS: Creatinine Urine 98.8 mg/dL; Erythrocyte Sedimentation Rate 63 mm/hr (0-20)
[2022-01-15 15:49] LABS: MALB Creatinine Ratio 65.4 mg/g (0-30); Microalbumin Urine Random 64.6 mg/L (0-16.7)
[2022-01-19 07:17] LABS: Kappa\\Lambda Light Chains 1.47 (0.26-1.65); Lambda Light Chain 48.6 mg/L (5.7-26.3)
[2022-01-19 19:48] LABS: Complement Total CH50 59 U/mL (31-60)
== END 2022-01-15 14:28 | disposition home or self-care (01) ==
PROVIDERS: PCP Family Medicine; Visit Provider Internal Medicine Nephrology
DX: N18.4 Chronic kidney disease, stage 4 (severe) (principal)
CPT/HCPCS: 36415; 80069; 81001; 82043; 83883; 83970; 85027; 85652; 86038; 86160; 86162; 86334; 87086; 87147; 87186

== ENCOUNTER 2022-01-17 13:08 | Outpatient (CLI) | payer OTHER, SELFPAY ==
[2022-01-17 14:27] LABS: Creatinine Urine 56.8 mg/dL; Total Protein Urine Random 13 mg/dL; Ur Ttl Prot Creatinine Ratio 0.23 mg/mg (0-0.20)
[2022-01-17 15:10] LABS: Add Urine Microscopic? YES; Appearance Urine Cloudy (Clear); Bilirubin Urine Negative (Negative); Blood Urine Negative (Negative); Color Urine Yellow (Yellow); Glucose Urine UA Negative (Negative); Ketones Urine Negative (Negative); Leukocyte Esterase Ur 2+ LEU/UL (NEGATIVE); Nitrate Urine Negative (Negative); Protein Urine Negative (Negative); Specific Grav Ur 1.015 (1.001-1.035); Urobilinogen Urine 0.2 mg/dL (<2.0)
[2022-01-17 15:17] LABS: Bacteria Urine Trace /hpf; Mucus Urine Few /lpf; Squamous Epithelial Cell Urine Many /hpf (Few); WBC Clumps Urine Present /HPF; WBC Urine >75 /hpf (0-3)
[2022-01-22 23:38] LABS: Albumin 38 %; Measured Kappa Chains <1.00 mg/dL (<2.00); Measured Lambda Chains <1.00 mg/dL (<2.00); Pro/Creat Ratio 148 mg/g creat (<=114)
[2022-02-14 12:14] LABS: Protein,total, 24 Hr Ur 130 mg/24h
== END 2022-01-17 13:09 | disposition home or self-care (01) ==
PROVIDERS: PCP Family Medicine; Visit Provider Internal Medicine Nephrology
DX: N18.4 Chronic kidney disease, stage 4 (severe) (principal)
CPT/HCPCS: 81001; 82570; 84156; 86335

== ENCOUNTER 2022-04-04 15:52 | Inpatient (IN) | payer OTHER, SELFPAY ==
[2022-04-04] VITALS (17 sets, daily range): BP systolic 139–170; BP diastolic 55–84; PULSE 71–93; RESP 16–18; TEMP 36.1–36.8; O2SAT 97–100; BMI 24.8
--- NOTE | ~2022-04-04 | CT_ITS ---
EXAMINATION: CT abdomen pelvis wo con DATE: 04/04/2022 19:28 INDICATION: Abdominal pain, vomiting and diarrhea. TECHNIQUE: Computed tomography (CT) of the abdomen and pelvis was performed without intravenous contr ast. Automated exposure control and iterative reconstruction technique were employed. The dose-length product was 295.76 mGy-cm. COMPARISON: 03/24/2018 FINDINGS: Mild discoid atelectasis/scarring the right middle lobe. Heart size is normal. Atherosclerotic bhakta ry artery calcific . No pericardial or pleural effusion. Small sliding-type hiatal hernia. Liver, gal lbladder, pancreas and bilateral adrenal glands are normal. Splenic calcification consistent with old granulomatous disease. 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 Multiple bilateral renal cysts, the largest exophytic cyst on the right measurin g up to 5.4 cm. There are a few centimeter cyst at the left kidney with high attenuation consistent w ith proteinaceous/hemorrhagic cyst. 3.0 cm proteinaceous/hemorrhagic cyst at the lower pole of the le ft kidney with intermediate attenuation but clearly seen is an anechoic cyst on renal ultrasound date d 05/20/2021. Moderate amount of stool scattered throughout the colon. No bowel obstruction. The appe ndix is not visualized. No pericecal inflammatory change to suggest acute appendicitis. Bladder is no rmal. The uterus is not identified and has likely been surgically resected. No free intraperitoneal g as or fluid. No pathologically enlarged abdominal or pelvic lymphadenopathy. Thoracolumbar dextroscol iosis with moderate to severe disc height loss at L5-S1 and otherwise mild spondylosis in the more ce phalad lumbar and lower thoracic spine. IMPRESSION: 1. No acute intra-abdominal/pelvic process. 2. Small sliding-type hiatal hernia. Reviewed, dictated and finalized at location A.
--- NOTE | ~2022-04-04 | US_ITS ---
EXAMINATION: US renal BI DATE: 04/05/2022 09:14 INDICATION: Acute on chronic kidney disease, urinary retention TECHNIQUE: Multiple grayscale and Doppler ultrasound images of the kidneys were obtained. COMPARISON: None. FINDINGS: The right kidney measures 10.4 x 4.9 x 3.9 cm. The left kidney measures 9.5 x 5.4 x 5.7 cm. The kidne ys demonstrate normal parenchymal echogenicity. Multiple bilateral simple cysts There is right-sided pelvicaliectasis. The bladder is normal. IMPRESSION: Mild right hydronephrosis. Multiple bilateral renal cysts. Reviewed, dictated and finalized at location K.
[2022-04-04 17:10] LABS: Basophils Percent Auto 0.4 % (0.2-1.2); Eosinophils Absolute Auto 0.1 K/mm3 (0-0.3); Eosinophils Percent Auto 1.8 % (0-4.4); Hematocrit 34.5 % (37.0-47.0); Hemoglobin 10.9 g/dL (12.0-15.0); Immature Granulocyte Absolute 0.02 K/mm3 (0.00-0.031); Immature Granulocyte Percent A 0.3 % (0-0.5); Lymphocytes Absolute Auto 1.35 K/mm3 (0.9-3.2); Lymphocytes Percent Auto 19.7 % (18.3-44.2); Mean Corpuscular HGB Conc 31.6 g/dl (32-36); Mean Corpuscular Hemoglobin 31.1 pg (26-34); Mean Corpuscular Volume 98.3 fl (80-100); Mean Platelet Volume 9.3 fl (7.4-10.4); Monocytes Absolute Auto 0.5 K/mm3 (0.1-0.6); Monocytes Percent Auto 7.3 % (2.6-8.5); Neutrophils Absolute Auto 4.8 K/mm3 (1.3-6.7); Neutrophils Percent Auto 70.5 % (45.5-73.1); Platelet Count Result 254 k/mm3 (150-375); Red Blood Count 3.51 M/mm3 (4.2-5.4); White Blood Count 6.9 K/mm3 (4.5-10.0)
[2022-04-04 17:24] LABS: Alanine Aminotransferase 14 U/L (6-35); Albumin Level 4.4 g/dL (3.5-5.1); Alkaline Phosphatase 65 U/L (38-126); Anion Gap 13 mmol/L (8-16); Aspartate Amino Transferase 28 U/L (14-36); Bilirubin,Total 0.5 mg/dL (0.2-1.3); Blood Urea Nitrogen 52 mg/dL (7-17); Carbon Dioxide 23 mmol/L (22-30); Chloride 104 mmol/L (98-107); Estimated CRCL calculation 10 ml/min; Estimated Glomerular Filt Rate 14; Glucose 113 mg/dL (65-110); Lipase 205 U/L (23-300); Potassium 4.6 mmol/L (3.4-5.0); Sodium 140 mmol/L (137-145)
[2022-04-04 18:37] LABS: Appearance Urine Slightly Cloudy (Clear); Bilirubin Urine Negative (Negative); Blood Urine Negative (Negative); Color Urine Yellow (Yellow); Glucose Urine UA Negative (Negative); Ketones Urine Trace mg/dL (Negative); Leukocyte Esterase Ur Trace LEU/UL (Negative); Nitrate Urine Positive (Negative); Protein Urine Trace mg/dL (Negative); Urobilinogen Urine 0.2 mg/dL (<2.0)
[2022-04-04 18:42] LABS: Add Urine Microscopic? YES
[2022-04-04 18:44] LABS: Squamous Epithelial Cell Urine Few /hpf (Few); WBC Clumps Urine Present /hpf
[2022-04-04 18:45] LABS: Bacteria Urine 2+ /hpf
--- NOTE | 2022-04-04 19:03 | ED.ABDPAIN ---
HPI - Abdominal Pain General Chief Complaint: Abdominal Pain Stated Complaint: constipation, nausea, pain Time Seen by Provider: 04/04/22 18:17 History of Present Illness HPI narrative: Pt is an 86 yo F with hx of COPD, CHF, CKD, hx of self-catheterization presenting with abdominal pain and vomiting. Pt states she has been constipated lately and her last bowel movement was 3 days ago. Since that time, she has had worsening abdominal pain, nausea, and vomiting. States she has been unable to keep any PO intake down. She saw her PCP earlier today who advised she come to the ED for further evaluation. Pt states she was recently treated for a UTI, states she has had recurrent UTIs in the last year related to self cathing. Reports a headache currently. Denies vision changes, numbness/weakness, chest pain, shortness of breath, cough, fevers, back pain, leg swelling. Related Data Home Medications Medication Instructions Recorded Confirmed melatonin 5 mg capsule 5 mg PO HS 06/07/19 04/04/22 aspirin 81 mg chewable tablet 81 mg PO DAILY 09/19/20 04/04/22 fluoxetine 40 mg capsule 40 mg PO DAILY 02/12/22 04/04/22 apixaban 2.5 mg tablet (Eliquis) 2.5 mg PO BID 04/05/22 04/05/22 metoprolol succinate 25 mg 25 mg PO DAILY 04/05/22 04/05/22 tablet,extended release 24 hr Allergies Allergy/AdvReac Type Severity Reaction Status Date / Time Estrogens Allergy Severe Swelling Verified 04/04/22 15:53 alendronate sodium AdvReac Unknown vomit Verified 04/04/22 15:53 ibandronate sodium AdvReac Unknown nausea Verified 04/04/22 15:53 raloxifene AdvReac Unknown nausea Verified 04/04/22 15:53 sulfamethizole AdvReac Unknown Nausea And Verified 04/04/22 15:53 Vomiting trimethoprim AdvReac Unknown Nausea And Verified 04/04/22 15:53 Vomiting Review of Systems Review of Systems: All systems reviewed & are unremarkable except as noted in HPI and below PMFSH Past Medical History Medical History Atonic neurogenic bladder Chronic kidney disease with active medical management without dialysis, stage 4 (severe) With baseline creatinine between 1.6-2.1 since 2020 Chronic pain disorder Chronic respiratory failure with hypoxia, on home O2 therapy PFTs 02/2020 demonstrating moderate to severe restrictive ventilatory defect with combined obstructive defect and moderate reduced diffusion capacity COPD (chronic obstructive pulmonary disease) Diastolic dysfunction Echocardiogram 02/2020: Mild concentric left ventricular hypertrophy, grade 1 diastolic dysfunction, EF 67%, right ventricular systolic pressure could not be estimated due to inadequate visualization DVT (deep venous thrombosis) Nonocclusive thrombus of the left popliteal vein and left proximal femoral vein 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 (09/2017) No significant coronary artery disease History of colonoscopy with polypectomy (~2012) History of tonsillectomy History of total hysterectomy with bilateral salpingo-oophorectomy (BSO) Status post cataract extraction of both eyes with insertion of intraocular lens Status post open reduction with internal fixation (ORIF) of fracture of ankle Left ankle Status post open reduction with internal fixation of fracture Left patella Family History Family Histor
[2022-04-04] MEDS: SODIUM CHLORIDE 0.9% IV 1,000 ML 999 ML IV CONT ×2 (19:39→23:39)
--- NOTE | 2022-04-04 21:14 | PM.IMHP ---
H&P: HPI History of Present Illness Date/Time: 04/04/22 21:14 Chief Complaint: Nausea, abdominal pain Narrative: 86-year-old female with a past medical history of COPD with chronic hypoxic respiratory failure, diastolic dysfunction grade 1, chronic kidney disease stage 4, atonic bladder with intermittent self catheterization, hiatal hernia, gastritis and esophageal dilatation (05/2021) who presented to the ER from primary care physician's office due to abdominal pain and nausea. The patient reports that she went to her urologist office March 07 and was diagnosed with a UTI. She was prescribed Cipro but only took a couple of days of antibiotic because it made her nauseated and have vomiting. He reported that after several days of this she did feel better but did not have as much of an appetite. She denied having any fevers. She does get chilled from time to time. She does have to straight cath 3 times a day. She reports that her urine is occasionally foul-smelling but she has not noticed any increased cloudiness or change in odor to her urine recently. She has not had any hematuria. She denies any bladder pain or spasms. She reports that over the last week she has had progressively decreased appetite. She has had frequent episodes of nausea and has had vomiting. Her emesis consisted of which she has been eating. She has associated upper abdominal pain that is worse with palpation. The pain is mild in intensity, ?just enough to be annoying , aching in nature. She reports that she tried some sublingual Zofran which actually made her more nauseated. She reports that her last bowel movement was 3 days ago and was hard in consistency. She denies any hematochezia or melena. She denies any chest pain or increased shortness of breath from baseline. She reports she uses chronic home O2 when active but often does not need the oxygen to sleep. She denies any significant lower extremity swelling. She does have to ambulate with a related walker. She denies any recent falls. She denies any lightheadedness. She has been having a mild frontal headache that is just enough to know that it is there. Denies any vision changes. Review of Systems Review of Systems: 12 systems were reviewed with pertinent positives and negatives per HPI. Except as documented in the HPI, all other systems were reviewed and are negative. [facility] Past Medical History Medical History (Updated 04/04/22 @ 21:51 by Rosaura Bullock DO) Atonic neurogenic bladder Chronic kidney disease with active medical management without dialysis, stage 4 (severe) With baseline creatinine between 1.6-2.1 since 2020 Chronic pain disorder Chronic respiratory failure with hypoxia, on home O2 therapy PFTs 02/2020 demonstrating moderate to severe restrictive ventilatory defect with combined obstructive defect and moderate reduced diffusion capacity COPD (chronic obstructive pulmonary disease) Diastolic dysfunction Echocardiogram 02/2020: Mild concentric left ventricular hypertrophy, grade 1 diastolic dysfunction, EF 67%, right ventricular systolic pressure could not be estimated due to inadequate visualization DVT (deep venous thrombosis) Nonocclusive thrombus of the left popliteal vein and left proximal femoral vein 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non-ST elevated myocardial infarction) September [address] demonstrated no evidence of coronary artery disease Opioid dependence Osteoporosis DEXA scan 04/2021 Polymyalgia rheumatica Surgical History Surgical History (Updated 04/04/22 @ 21:38 by Rosaura Bullock DO) History of cardiac catheterization (09/22
--- NOTE | 2022-04-04 22:50 | ADMGEN ---
This patient, Codie Duarte, was admitted to Medical Room 348-01. Patient/family oriented to hospital policies and general routines including ID bracelet, bed and alarms, visiting hours, pain management, procedures, bathroom and other care routines, personal items, smoking policy, room service/diet, and visiting hours. Information on how to activate the Rapid Response Team has been discussed. Patient/Family are encouraged to report perceived risks to care and to ask questions if they do not understand what they are told or what they should do.
[2022-04-04] MEDS: ONDANSETRON INJ 4 MG/2 ML VIAL IV PUSH (23:38)
[2022-04-05] VITALS (8 sets, daily range): BP systolic 135–152; BP diastolic 54–82; PULSE 70–93; RESP 16–18; TEMP 35.1–36.7; O2SAT 96–99; BMI 24.8
[2022-04-05] MEDS: SODIUM CHLORIDE 0.9% IV 1,000 ML 100 ML IV CONT ×2 (00:52→12:07)
[2022-04-05 05:18] LABS: Hematocrit 28.9 % (37.0-47.0); Hemoglobin 9.1 g/dL (12.0-15.0); Mean Corpuscular HGB Conc 31.5 g/dl (32-36); Mean Corpuscular Volume 98.3 fl (80-100); Mean Platelet Volume 9.8 fl (7.4-10.4); Platelet Count Result 212 k/mm3 (150-375); Red Blood Count 2.94 M/mm3 (4.2-5.4); Red Cell Distribution Width 13.8 % (11.5-14.5); White Blood Count 7.6 K/mm3 (4.5-10.0)
[2022-04-05 05:44] LABS: Anion Gap 14 mmol/L (8-16); Blood Urea Nitrogen 41 mg/dL (7-17); Calcium 8.3 mg/dL (8.4-10.2); Carbon Dioxide 21 mmol/L (22-30); Chloride 108 mmol/L (98-107); Estimated CRCL calculation 12 ml/min; Estimated Glomerular Filt Rate 16; Glucose 91 mg/dL (65-110); Magnesium 2.2 mg/dL (1.6-2.3); Phosphorus 4.1 mg/dL (2.5-4.5); Potassium 4.3 mmol/L (3.4-5.0); Sodium 143 mmol/L (137-145)
[2022-04-05] MEDS: BISACODYL 10 MG SUPPOSITORY RECTAL (06:54)
[2022-04-05] MEDS: FLUoxetine HCL 20 MG CAPSULE 40 MG PO (09:59)
[2022-04-05] MEDS: PANTOPRAZOLE 40 MG TABLET PO ×2 (09:59→20:16)
[2022-04-05] MEDS: ASPIRIN 81 MG CHEWABLE TABLET PO (09:59)
[2022-04-05] MEDS: METOPROLOL SUCCINATE EXT REL 25 MG TABCR PO (10:00)
[2022-04-05] MEDS: APIXABAN 2.5 MG TABLET PO ×2 (10:00→17:47)
[2022-04-05] MEDS: HYDROcodone/acetaminophen (*CRX) 10-325 MG TABLET 1 TAB PO ×2 (10:04→22:17)
[2022-04-05] MEDS: FLUTICASONE/UMECLIDIN/VILANTER 100-62.5-25 MCG ELLIPTA 1 PUFF INHALATION (11:59)
[2022-04-05] MEDS: ONDANSETRON INJ 4 MG/2 ML VIAL IV PUSH (12:05)
--- NOTE | 2022-04-05 13:06 | PM.IMPN ---
Progress Note: A&P Assessment and Plan (1) Acute kidney injury superimposed on chronic kidney disease: Code(s): N17.9 - Acute kidney failure, unspecified; N18.9 - Chronic kidney disease, unspecified Status: Acute Assessment and Plan: Patient has acute on chronic kidney injury likely due to volume depletion given her decreased oral intake and nausea. She has been rehydrated with IV fluids. Continue gentle IV fluids at 100 ml/hr Creatinine improving. Down to 2.8 today with BUN 41 Renal ultrasound is pending Baseline creatinine on review of prior labs appears to be 1.6-1.9 Continue to monitor BMP (2) Nausea & vomiting: Qualifiers: Vomiting type: unspecified Qualified Code(s): R11.2 - Nausea with vomiting, unspecified Code(s): R11.2 - Nausea with vomiting, unspecified Status: Acute Assessment and Plan: Patient's abdominal pain and nausea is likely multifactorial due to constipation and aggravated by worsening dehydration and uremia. Supportive care. Analgesics and antiemetics available as needed Tolerating diet (3) Abdominal pain: Qualifiers: Abdominal location: generalized Qualified Code(s): R10.84 - Generalized abdominal pain Code(s): R10.9 - Unspecified abdominal pain Status: Acute Assessment and Plan: See above Moderate colonic stool load noted on CT Will begin MiraLax and Colace (4) Gastritis: Qualifiers: Gastritis type: unspecified gastritis Chronicity: chronic Gastritis bleeding: without bleeding Qualified Code(s): K29.50 - Unspecified chronic gastritis without bleeding Code(s): K29.70 - Gastritis, unspecified, without bleeding Status: Acute Assessment and Plan: May be exacerbating nausea Continue PPI (5) Bacteriuria with pyuria: Code(s): R82.71 - Bacteriuria; R82.81 - Pyuria Status: Acute Assessment and Plan: Not unexpected in a patient frequently self caths. Patient is asymptomatic. No fever or leukocytosis. Received 1 dose of empiric antibiotic therapy in the ED. At this time will hold off on further antibiotics as long as the patient remains asymptomatic (6) Atonic neurogenic bladder: Code(s): N31.2 - Flaccid neuropathic bladder, not elsewhere classified Status: Acute Assessment and Plan: Follows with urology Continue self caths on schedule Subjective Date/time seen: 04/05/22 13:06 Interval history: Date of service: 04/05/2022 Codie Duarte is an 86-year-old female with a history of COPD, CKD, chronic respiratory failure on home oxygen therapy, DVT on chronic anticoagulation, hypertension, hyperlipidemia, CAD who is seen in follow-up for acute on chronic kidney injury. She complains of upset aching stomach. She was able to eat Jell-O today which was the 1st thing she was able to keep down in the past 2 days. She does endorse nausea today. States her last episode of emesis was on . Denies fever, chills, or sweats. States she feels a bit lightheaded upon standing but blames this on vision issue since cataract surgery and states this is a chronic problem. She performs self catheterization 3 times per day and has not had any issues with this. Denies pelvic pain or flank pain. Denies diarrhea. No shortness breath, cough, chest pain, palpitations. Review of Systems Review of Systems: All systems reviewed & are unremarkable except as noted in HPI and below Exam Narrative: General: Well-nourished, well-appearing 86-year-old female, sitting up in bed, comfortable, NARD Neuro: awake, alert and oriented x4, speech clear, no focal neuro deficits noted HEENMT: normocephalic, atraumatic, EOMI, sclerae anicteric Respiratory: clear to auscultation bilaterally, nonlabored breathing Cardio: regular rate, regular rhythm with S1-S2 Abdomen: nondistended, normoactive bowel sounds, soft, nontender to palpation
[2022-04-05] MEDS: rOPINIRole HCL 0.5 MG TABLET PO ×2 (17:47→20:16)
[2022-04-05] MEDS: MELATONIN 5 MG TABLET PO (20:16)
[2022-04-06] VITALS (7 sets, daily range): BP systolic 143–165; BP diastolic 51–72; PULSE 69–78; RESP 16–18; TEMP 35.9–36.6; O2SAT 96–100
[2022-04-06 05:28] LABS: Hematocrit 27.8 % (37.0-47.0); Hemoglobin 8.6 g/dL (12.0-15.0); Mean Corpuscular HGB Conc 30.9 g/dl (32-36); Mean Corpuscular Hemoglobin 30.8 pg (26-34); Mean Corpuscular Volume 99.6 fl (80-100); Mean Platelet Volume 9.6 fl (7.4-10.4); Platelet Count Result 198 k/mm3 (150-375); Red Blood Count 2.79 M/mm3 (4.2-5.4); White Blood Count 6.1 K/mm3 (4.5-10.0)
[2022-04-06 05:48] LABS: Anion Gap 12 mmol/L (8-16); Blood Urea Nitrogen 31 mg/dL (7-17); Calcium 7.5 mg/dL (8.4-10.2); Carbon Dioxide 21 mmol/L (22-30); Chloride 109 mmol/L (98-107); Estimated CRCL calculation 14 ml/min; Estimated Glomerular Filt Rate 19; Glucose 96 mg/dL (65-110); Potassium 4.3 mmol/L (3.4-5.0); Sodium 142 mmol/L (137-145)
[2022-04-06] MEDS: FLUTICASONE/UMECLIDIN/VILANTER 100-62.5-25 MCG ELLIPTA 1 PUFF INHALATION (08:00)
[2022-04-06] MEDS: SODIUM CHLORIDE 0.9% IV 1,000 ML 100 ML IV CONT ×2 (08:10→17:37)
[2022-04-06] MEDS: METOPROLOL SUCCINATE EXT REL 25 MG TABCR PO (08:10)
[2022-04-06] MEDS: ASPIRIN 81 MG CHEWABLE TABLET PO (08:10)
[2022-04-06] MEDS: ONDANSETRON INJ 4 MG/2 ML VIAL IV PUSH ×2 (08:11→17:38)
[2022-04-06] MEDS: PANTOPRAZOLE 40 MG TABLET PO ×2 (08:11→20:31)
[2022-04-06] MEDS: FLUoxetine HCL 20 MG CAPSULE 40 MG PO (08:11)
[2022-04-06] MEDS: APIXABAN 2.5 MG TABLET PO ×2 (08:11→17:37)
[2022-04-06 08:37] LABS: Albumin Level 2.9 g/dL (3.5-5.1)
--- NOTE | 2022-04-06 13:58 | PM.IMPN ---
Progress Note: A&P Assessment and Plan (1) Acute kidney injury superimposed on chronic kidney disease: Code(s): N17.9 - Acute kidney failure, unspecified; N18.9 - Chronic kidney disease, unspecified Status: Acute Assessment and Plan: Patient has acute on chronic kidney injury likely due to volume depletion given her decreased oral intake and nausea. She has been rehydrated with IV fluids. Continue gentle IV fluids at 100 ml/hr Creatinine improving. Down to 2.4 today with BUN 31 Renal ultrasound showed mild right hydronephrosis. Baseline creatinine on review of prior labs appears to be 1.6-1.9 Continue to monitor BMP (2) Nausea & vomiting: Qualifiers: Vomiting type: unspecified Qualified Code(s): R11.2 - Nausea with vomiting, unspecified Code(s): R11.2 - Nausea with vomiting, unspecified Status: Acute Assessment and Plan: Patient's abdominal pain and nausea is likely multifactorial due to constipation and gastritis and aggravated by dehydration and uremia. Supportive care. Analgesics and antiemetics available as needed Tolerating diet (3) Abdominal pain: Qualifiers: Abdominal location: generalized Qualified Code(s): R10.84 - Generalized abdominal pain Code(s): R10.9 - Unspecified abdominal pain Status: Acute Assessment and Plan: See above Moderate colonic stool load noted on CT Continue MiraLax and Colace. Patient having bowel movements (4) Gastritis: Qualifiers: Gastritis type: unspecified gastritis Chronicity: chronic Gastritis bleeding: without bleeding Qualified Code(s): K29.50 - Unspecified chronic gastritis without bleeding Code(s): K29.70 - Gastritis, unspecified, without bleeding Status: Acute Assessment and Plan: May be exacerbating nausea Continue PPI (5) Bacteriuria with pyuria: Code(s): R82.71 - Bacteriuria; R82.81 - Pyuria Status: Acute Assessment and Plan: Not unexpected in a patient frequently self caths. Patient is asymptomatic. No fever or leukocytosis. Received 1 dose of empiric antibiotic therapy in the ED. At this time will hold off on further antibiotics as long as the patient remains asymptomatic (6) Atonic neurogenic bladder: Code(s): N31.2 - Flaccid neuropathic bladder, not elsewhere classified Status: Acute Assessment and Plan: Follows with urology Continue self caths on schedule Subjective Date/time seen: 04/06/22 13:58 Interval history: Date of service: 04/06/2022 Codie Duarte is an 86-year-old female with a history of COPD, CKD, chronic respiratory failure on home oxygen therapy, DVT on chronic anticoagulation, hypertension, hyperlipidemia, CAD who is seen in follow-up for acute on chronic kidney injury. She felt nauseated this morning. She was able to tolerate having Ensure and tea for breakfast but could not have any solids. She reports 2 formed bowel movements today. She has mid abdominal discomfort that she describes as ?annoying? and gnawing. She denies shortness breath, cough, chest pain, dizziness, lightheadedness, weakness. She is ambulating to the bathroom without difficulty. She is on her typical home oxygen settings. Review of Systems Review of Systems: All systems reviewed & are unremarkable except as noted in HPI and below Exam Narrative: General: Well-nourished, well-appearing 86-year-old female, sitting up in bed, comfortable, NARD Neuro: awake, alert and oriented x4, speech clear, no focal neuro deficits noted HEENMT: normocephalic, atraumatic, EOMI, sclerae anicteric Respiratory: clear to auscultation bilaterally, nonlabored breathing Cardio: regular rate, regular rhythm with S1-S2 Abdomen: nondistended, normoactive bowel sounds, soft, nontender to palpation Extremities: no edema, erythema, or tenderness to palpation Skin: no rashes or lesions, warm and dry Psy
[2022-04-06] MEDS: rOPINIRole HCL 0.5 MG TABLET PO ×2 (17:37→20:31)
[2022-04-06] MEDS: HYDROcodone/acetaminophen (*CRX) 10-325 MG TABLET 1 TAB PO (17:38)
[2022-04-06] MEDS: MELATONIN 5 MG TABLET PO (20:30)
[2022-04-07] MEDS: SODIUM CHLORIDE 0.9% IV 1,000 ML 100 ML IV CONT ×2 (04:00→13:56)
[2022-04-07 04:49] VITALS: BP 171/73; PULSE 80; RESP 18; TEMP 36.4; O2SAT 92
[2022-04-07] MEDS: ASPIRIN 81 MG CHEWABLE TABLET PO (08:21)
[2022-04-07] MEDS: APIXABAN 2.5 MG TABLET PO ×2 (08:21→17:03)
[2022-04-07] MEDS: FLUoxetine HCL 20 MG CAPSULE 40 MG PO (08:21)
[2022-04-07 08:22] VITALS: PULSE 66; O2SAT 98
[2022-04-07] MEDS: PANTOPRAZOLE 40 MG TABLET PO ×2 (08:22→20:29)
[2022-04-07] MEDS: METOPROLOL SUCCINATE EXT REL 25 MG TABCR PO (08:22)
[2022-04-07 08:47] LABS: Hemoglobin 9.2 g/dL (12.0-15.0); Mean Corpuscular HGB Conc 30.7 g/dl (32-36); Mean Corpuscular Hemoglobin 30.8 pg (26-34); Mean Corpuscular Volume 100.3 fl (80-100); Mean Platelet Volume 9.8 fl (7.4-10.4); Platelet Count Result 209 k/mm3 (150-375); Red Blood Count 2.99 M/mm3 (4.2-5.4); Red Cell Distribution Width 14.3 % (11.5-14.5)
[2022-04-07 08:57] LABS: Anion Gap 14 mmol/L (8-16); Blood Urea Nitrogen 24 mg/dL (7-17); Calcium 8.2 mg/dL (8.4-10.2); Carbon Dioxide 20 mmol/L (22-30); Chloride 111 mmol/L (98-107); Estimated CRCL calculation 14 ml/min; Estimated Glomerular Filt Rate 20; Glucose 102 mg/dL (65-110); Potassium 3.7 mmol/L (3.4-5.0); Sodium 145 mmol/L (137-145)
[2022-04-07] MEDS: FLUTICASONE/UMECLIDIN/VILANTER 100-62.5-25 MCG ELLIPTA 1 PUFF INHALATION (09:31)
[2022-04-07 09:33] VITALS: O2SAT 98
--- NOTE | 2022-04-07 10:46 | PM.IMPN ---
Progress Note: A&P Assessment and Plan (1) Acute kidney injury superimposed on chronic kidney disease: Code(s): N17.9 - Acute kidney failure, unspecified; N18.9 - Chronic kidney disease, unspecified Status: Acute Assessment and Plan: Patient has acute on chronic kidney injury likely due to volume depletion given her decreased oral intake and nausea. Continue with IV fluid rehydration at 100 ml/hr Creatinine slowly improving. Down to 2.3 today with BUN 24 Renal ultrasound showed mild right hydronephrosis with multiple simple cysts bilaterally Baseline creatinine on review of prior labs appears to be 1.6-1.9 Continue to monitor BMP (2) Nausea & vomiting: Qualifiers: Vomiting type: unspecified Qualified Code(s): R11.2 - Nausea with vomiting, unspecified Code(s): R11.2 - Nausea with vomiting, unspecified Status: Acute Assessment and Plan: Vomiting resolved. Nausea improved. Llikely multifactorial due to constipation and gastritis and aggravated by dehydration and uremia. Supportive care. Analgesics and antiemetics available as needed Tolerating diet (3) Abdominal pain: Qualifiers: Abdominal location: generalized Qualified Code(s): R10.84 - Generalized abdominal pain Code(s): R10.9 - Unspecified abdominal pain Status: Acute Assessment and Plan: Resolved Moderate colonic stool load noted on CT Continue MiraLax and Colace. Patient having bowel movements (4) Gastritis: Qualifiers: Gastritis type: unspecified gastritis Chronicity: chronic Gastritis bleeding: without bleeding Qualified Code(s): K29.50 - Unspecified chronic gastritis without bleeding Code(s): K29.70 - Gastritis, unspecified, without bleeding Status: Acute Assessment and Plan: May be exacerbating nausea Continue PPI (5) Bacteriuria with pyuria: Code(s): R82.71 - Bacteriuria; R82.81 - Pyuria Status: Acute Assessment and Plan: Not unexpected in a patient frequently self caths. Patient is asymptomatic. No fever or leukocytosis. Received 1 dose of empiric antibiotic therapy in the ED. Holding further antibiotics as long as the patient remains asymptomatic (6) Atonic neurogenic bladder: Code(s): N31.2 - Flaccid neuropathic bladder, not elsewhere classified Status: Acute Assessment and Plan: Follows with urology Continue self caths on schedule Subjective Date/time seen: 04/07/22 10:46 Interval history: Date of service: 04/07/2022 Codie Duarte is an 86-year-old female with a history of COPD, CKD, chronic respiratory failure on home oxygen therapy, DVT on chronic anticoagulation, hypertension, hyperlipidemia, CAD who is seen in follow-up for acute on chronic kidney injury. Continues to complain of nausea. Was able to tolerate her breakfast this morning. No vomiting. She had a bowel movement yesterday. No issues with straight caths. Denies shortness breath, cough, chest pain. Review of Systems Review of Systems: All systems reviewed & are unremarkable except as noted in HPI and below Exam Narrative: General: Well-nourished, well-appearing 86-year-old female, supine in bed, comfortable, NARD Neuro: awake, alert and oriented x4, speech clear, no focal neuro deficits noted HEENMT: normocephalic, atraumatic, EOMI, sclerae anicteric Respiratory: clear to auscultation bilaterally, nonlabored breathing Cardio: regular rate, regular rhythm with S1-S2 Abdomen: nondistended, normoactive bowel sounds, soft, nontender to palpation Extremities: no edema, erythema, or tenderness to palpation Skin: no rashes or lesions, warm and dry Psych: appropriate mood and affect, judgment and insight intact Objective Data Vital Signs Vital Signs: Vital Signs - 24 hr 04/06/22 15:40 04/06/22 20:13 04/06/22 20:00 Temperature 96.7 F L 97.4 F L Pulse Rate 69 70 70 Respir
[2022-04-07] MEDS: ONDANSETRON INJ 4 MG/2 ML VIAL IV PUSH (12:05)
[2022-04-07 14:00] VITALS: BP 155/72; PULSE 67; RESP 18; TEMP 36.8; O2SAT 100
[2022-04-07] MEDS: rOPINIRole HCL 0.5 MG TABLET PO ×2 (17:03→20:29)
[2022-04-07 20:00] VITALS: PULSE 67; RESP 18; O2SAT 100
[2022-04-07] MEDS: MELATONIN 5 MG TABLET PO (20:29)
[2022-04-07] MEDS: HYDROcodone/acetaminophen (*CRX) 10-325 MG TABLET 1 TAB PO (22:26)
[2022-04-08] VITALS: BP 183/81; PULSE 70; RESP 16; TEMP 36.8; O2SAT 99
[2022-04-08] MEDS: SODIUM CHLORIDE 0.9% IV 1,000 ML 100 ML IV CONT ×2 (00:28→11:51)
[2022-04-08 05:45] LABS: Hematocrit 27.7 % (37.0-47.0); Hemoglobin 8.6 g/dL (12.0-15.0); Mean Corpuscular Hemoglobin 30.6 pg (26-34); Mean Corpuscular Volume 98.6 fl (80-100); Mean Platelet Volume 9.5 fl (7.4-10.4); Platelet Count Result 164 k/mm3 (150-375); Red Blood Count 2.81 M/mm3 (4.2-5.4); Red Cell Distribution Width 14.2 % (11.5-14.5); White Blood Count 7.6 K/mm3 (4.5-10.0)
[2022-04-08 05:57] LABS: Anion Gap 13 mmol/L (8-16); Blood Urea Nitrogen 22 mg/dL (7-17); Calcium 7.8 mg/dL (8.4-10.2); Carbon Dioxide 22 mmol/L (22-30); Chloride 109 mmol/L (98-107); Estimated CRCL calculation 15 ml/min; Estimated Glomerular Filt Rate 22; Glucose 95 mg/dL (65-110); Potassium 3.5 mmol/L (3.4-5.0); Sodium 144 mmol/L (137-145)
[2022-04-08 08:19] VITALS: PULSE 62; O2SAT 98
[2022-04-08] MEDS: METOPROLOL SUCCINATE EXT REL 25 MG TABCR PO (08:19)
[2022-04-08] MEDS: FLUoxetine HCL 20 MG CAPSULE 40 MG PO (08:19)
[2022-04-08] MEDS: ASPIRIN 81 MG CHEWABLE TABLET PO (08:19)
[2022-04-08] MEDS: PANTOPRAZOLE 40 MG TABLET PO (08:19)
[2022-04-08] MEDS: APIXABAN 2.5 MG TABLET PO (08:19)
[2022-04-08] MEDS: ONDANSETRON INJ 4 MG/2 ML VIAL IV PUSH (08:35)
[2022-04-08] MEDS: FLUTICASONE/UMECLIDIN/VILANTER 100-62.5-25 MCG ELLIPTA 1 PUFF INHALATION (08:45)
[2022-04-08 08:46] VITALS: O2SAT 98
--- NOTE | 2022-04-08 12:17 | PM.DS ---
DS: Admitting Diagnosis Discharge Date 04/08/22 Admitting Diagnosis Acute on chronic kidney injury DS: Discharge Diagnosis Discharge Diagnosis (1) Acute kidney injury superimposed on chronic kidney disease: Code(s): N17.9 - Acute kidney failure, unspecified; N18.9 - Chronic kidney disease, unspecified Status: Acute Assessment and Plan: Patient has acute on chronic kidney injury likely due to volume depletion given her decreased oral intake and nausea.? Appropriately rehydrated with IV fluid Creatinine elevated up to 3.2 on presentation. Slowly improved with fluids down to 2.1 at time of discharge Renal ultrasound showed mild right hydronephrosis with multiple simple cysts bilaterally. reviewed report with radiologist, reports mild hydronephrosis is either clinically insignificant or even possibly within normal limits. no further evaluation Baseline creatinine on review of prior labs appears to be 1.6-1.9 Hold furosemide Repeat BMP in 1 week (2) Nausea & vomiting: Qualifiers: Vomiting type: unspecified Qualified Code(s): R11.2 - Nausea with vomiting, unspecified Code(s): R11.2 - Nausea with vomiting, unspecified Status: Acute Assessment and Plan: Vomiting resolved.? Nausea improved. Llikely multifactorial due to constipation and gastritis and aggravated by dehydration and uremia. Supportive care. Analgesics and antiemetics available as needed Tolerating diet (3) Abdominal pain: Qualifiers: Abdominal location: generalized Qualified Code(s): R10.84 - Generalized abdominal pain Code(s): R10.9 - Unspecified abdominal pain Status: Acute Assessment and Plan: ?Resolved. likely due to combination of constipation and gastritis Moderate colonic stool load noted on CT. Continue MiraLax and Colace (4) Gastritis: Qualifiers: Chronicity: chronic Gastritis bleeding: without bleeding Gastritis type: unspecified gastritis Qualified Code(s): K29.50 - Unspecified chronic gastritis without bleeding Code(s): K29.70 - Gastritis, unspecified, without bleeding Status: Acute Assessment and Plan: likely contributing to nausea and abdominal discomfort Continue PPI (5) Bacteriuria with pyuria: Code(s): R82.71 - Bacteriuria; R82.81 - Pyuria Status: Acute Assessment and Plan: Asymptomatic. Not unexpected in a patient who frequently self caths. Patient remained asymptomatic.? No fever or leukocytosis. Received 1 dose of empiric antibiotic therapy in the ED. No further antibiotics indicated (6) Atonic neurogenic bladder: Code(s): N31.2 - Flaccid neuropathic bladder, not elsewhere classified Status: Acute Assessment and Plan: Follows with urology Continue self caths on schedule DS: Summary Hospital Course Hospital Course: Date of admission: 04/04/2022 date of discharge: 04/08/2022 Codie Duarte is an 86-year-old female with a history of COPD, CKD, chronic respiratory failure on home oxygen therapy, DVT on chronic anticoagulation, hypertension, hyperlipidemia, CAD who presented to the emergency department on 04/04/2022 with complaints of abdominal pain, nausea, vomiting, and feeling constipated. On presentation to the ED, vital signs were stable, she was afebrile, laboratory workup unremarkable with the exception of creatinine which was elevated at 3.2, CT of the abdomen/ pelvis showed no acute intra-abdominal/pelvic process. She was admitted to the hospitalist service for further evaluation management. Please see above for further details. She was rehydrated with IV fluids and renal function improved. Vomiting resolved and she was able to tolerate appropriate p.o. intake. Discussed need for maintaining adequate p.o. hydration. She will have a repeat BMP as an outpatient in 1 week for further monitoring of renal function and will hold furosemide until instructe
== END 2022-04-08 14:20 | disposition home or self-care (01) | DRG 683 ==
LOC: ANHED 18:17 → ANH3MED 22:04
PROVIDERS: Emergency Medicine; Physician Assistant; Admitting Provider Internal Medicine; Emergency Provider Emergency Medicine; PCP Family Medicine; Visit Provider Internal Medicine
DX: N17.9 Acute kidney failure, unspecified (principal); J96.10 Chronic respiratory failure, unspecified whether with hypoxia or hypercapnia; N18.9 Chronic kidney disease, unspecified; E86.0 Dehydration; K59.00 Constipation, unspecified; R10.84 Generalized abdominal pain; K29.70 Gastritis, unspecified, without bleeding; N31.2 Flaccid neuropathic bladder, not elsewhere classified; J44.9 Chronic obstructive pulmonary disease, unspecified; E78.5 Hyperlipidemia, unspecified; R82.71 Bacteriuria; R82.81 Pyuria; K21.9 Gastro-esophageal reflux disease without esophagitis; I12.9 Hypertensive chronic kidney disease with stage 1 through stage 4 chronic kidney disease, or unspecified chronic kidney disease; N18.4 Chronic kidney disease, stage 4 (severe); M35.3 Polymyalgia rheumatica; M81.0 Age-related osteoporosis without current pathological fracture; K44.9 Diaphragmatic hernia without obstruction or gangrene; I25.10 Atherosclerotic heart disease of native coronary artery without angina pectoris; G89.29 Other chronic pain; N13.30 Unspecified hydronephrosis; N28.1 Cyst of kidney, acquired; Z79.01 Long term (current) use of anticoagulants; Z99.81 Dependence on supplemental oxygen; Z86.718 Personal history of other venous thrombosis and embolism; I25.2 Old myocardial infarction; Z90.710 Acquired absence of both cervix and uterus; Z90.722 Acquired absence of ovaries, bilateral; Z96.1 Presence of intraocular lens; Z98.42 Cataract extraction status, left eye; Z98.41 Cataract extraction status, right eye; Z87.891 Personal history of nicotine dependence; Z79.82 Long term (current) use of aspirin
CPT/HCPCS: 36415; 51701; 74176; 76775; 80048; 80053; 81001; 82040; 83690; 83735; 84100; 85025; 85027; 94640; 96361; 96365; 96375; 96376; 99285; A9270; G0378; J0696; J2405; J7030

== ENCOUNTER 2022-04-16 14:53 | Outpatient (CLI) | payer OTHER, SELFPAY ==
[2022-04-16 15:32] LABS: Anion Gap 10 mmol/L (8-16); Blood Urea Nitrogen 42 mg/dL (7-17); Carbon Dioxide 22 mmol/L (22-30); Chloride 104 mmol/L (98-107); Estimated Glomerular Filt Rate 17; Glucose 99 mg/dL (65-110); Potassium 4.7 mmol/L (3.4-5.0); Sodium 136 mmol/L (137-145)
== END 2022-04-16 14:54 | disposition home or self-care (01) ==
PROVIDERS: PCP Family Medicine; Visit Provider Physician Assistant
DX: N17.9 Acute kidney failure, unspecified (principal); N18.9 Chronic kidney disease, unspecified
CPT/HCPCS: 36415; 80048

== ENCOUNTER 2022-05-19 14:44 | Outpatient (CLI) | payer OTHER, SELFPAY ==
[2022-05-19 15:43] LABS: Hematocrit 30.4 % (37.0-47.0); Hemoglobin 9.6 g/dL (12.0-15.0)
[2022-05-19 15:56] LABS: Alanine Aminotransferase 14 U/L (6-35); Alkaline Phosphatase 57 U/L (38-126); Anion Gap 11 mmol/L (8-16); Aspartate Amino Transferase 18 U/L (14-36); Bilirubin,Total 0.3 mg/dL (0.2-1.3); Blood Urea Nitrogen 44 mg/dL (7-17); Calcium 9.1 mg/dL (8.4-10.2); Carbon Dioxide 24 mmol/L (22-30); Chloride 106 mmol/L (98-107); Estimated Glomerular Filt Rate 21; Glucose 97 mg/dL (65-110); Potassium 4.4 mmol/L (3.4-5.0); Sodium 141 mmol/L (137-145)
== END 2022-05-19 14:45 | disposition home or self-care (01) ==
PROVIDERS: PCP Family Medicine; Referring Provider Internal Medicine Nephrology; Visit Provider Family Medicine
DX: I10 Essential (primary) hypertension (principal); D64.9 Anemia, unspecified
CPT/HCPCS: 36415; 80053; 85014; 85018

== ENCOUNTER 2022-05-21 13:45 | Outpatient (CLI) | payer OTHER, SELFPAY ==
[2022-05-21 14:19] LABS: Hematocrit 31.9 % (37.0-47.0); Hemoglobin 9.8 g/dL (12.0-15.0); Mean Corpuscular HGB Conc 30.7 g/dl (32-36); Mean Corpuscular Hemoglobin 31.9 pg (26-34); Mean Corpuscular Volume 103.9 fl (80-100); Mean Platelet Volume 9.5 fl (7.4-10.4); Platelet Count Result 237 k/mm3 (150-375); Red Blood Count 3.07 M/mm3 (4.2-5.4); Red Cell Distribution Width 16.9 % (11.5-14.5); White Blood Count 7.5 K/mm3 (4.5-10.0)
[2022-05-21 14:35] LABS: Albumin Level 4.1 g/dL (3.5-5.1); Anion Gap 10 mmol/L (8-16); Blood Urea Nitrogen 43 mg/dL (7-17); Calcium 8.9 mg/dL (8.4-10.2); Carbon Dioxide 24 mmol/L (22-30); Chloride 106 mmol/L (98-107); Estimated Glomerular Filt Rate 21; Glucose 95 mg/dL (65-110); Phosphorus 4.1 mg/dL (2.5-4.5); Potassium 4.5 mmol/L (3.4-5.0); Sodium 140 mmol/L (137-145)
[2022-05-21 14:44] LABS: Parathyroid Intact 106.9 pg/mL (7.5-53.5)
[2022-05-21 14:50] LABS: Vitamin D 25 Hydroxy 60.7 ng/mL
[2022-05-21 18:10] LABS: Creatinine Urine 61.8 mg/dL; Total Protein Urine Random 57 mg/dL; Ur Ttl Prot Creatinine Ratio 0.92 mg/mg (0-0.20)
== END 2022-05-21 13:46 | disposition home or self-care (01) ==
LOC: ANHLAB 13:47
PROVIDERS: PCP Family Medicine; Visit Provider Internal Medicine Nephrology
DX: N18.4 Chronic kidney disease, stage 4 (severe) (principal); E21.1 Secondary hyperparathyroidism, not elsewhere classified
CPT/HCPCS: 36415; 80069; 82306; 82570; 83970; 84156; 85027

== ENCOUNTER 2022-07-01 15:05 | Outpatient (CLI) | payer OTHER, SELFPAY ==
[2022-07-01 15:50] LABS: Appearance Urine Slightly Cloudy (Clear); Bilirubin Urine Negative (Negative); Blood Urine Trace-intact (Negative); Color Urine Yellow (Yellow); Glucose Urine UA Negative (Negative); Ketones Urine Negative (Negative); Leukocyte Esterase Ur 3+ LEU/UL (Negative); Nitrate Urine Negative (Negative); Protein Urine Trace mg/dL (Negative); Urobilinogen Urine 0.2 mg/dL (<2.0); pH Urine 6.5 (5.0-9.0)
[2022-07-01 15:58] LABS: Alanine Aminotransferase 14 U/L (6-35); Albumin Level 3.7 g/dL (3.5-5.1); Alkaline Phosphatase 44 U/L (38-126); Anion Gap 7 mmol/L (8-16); Aspartate Amino Transferase 17 U/L (14-36); Bilirubin,Total 0.2 mg/dL (0.2-1.3); Blood Urea Nitrogen 41 mg/dL (7-17); Calcium 8.4 mg/dL (8.4-10.2); Carbon Dioxide 27 mmol/L (22-30); Chloride 106 mmol/L (98-107); Estimated Glomerular Filt Rate 20; Glucose 127 mg/dL (65-110); Potassium 4.6 mmol/L (3.4-5.0); Sodium 140 mmol/L (137-145)
[2022-07-01 16:02] LABS: Bacteria Urine Trace /hpf; RBC Urine 0-2 /hpf (0-2); Squamous Epithelial Cell Urine Rare /hpf (Few); WBC Urine >75 /hpf
[2022-07-01 16:03] LABS: Add Urine Microscopic? YES
== END 2022-07-01 15:06 | disposition home or self-care (01) ==
LOC: ANHLAB 15:06
PROVIDERS: PCP Family Medicine; Visit Provider Nurse Practitioner Gerontology
DX: R30.0 Dysuria (principal); N17.9 Acute kidney failure, unspecified; D64.9 Anemia, unspecified
CPT/HCPCS: 36415; 80053; 81001; 87077; 87086; 87186

== ENCOUNTER 2022-07-14 14:50 | Outpatient (CLI) | payer OTHER, SELFPAY ==
[2022-07-14 15:36] LABS: Basophils Percent Auto 0.4 % (0.2-1.2); Eosinophils Absolute Auto 0.3 K/mm3 (0-0.3); Eosinophils Percent Auto 4.8 % (0-4.4); Hematocrit 32.1 % (37.0-47.0); Immature Granulocyte Absolute 0.02 K/mm3 (0.00-0.031); Immature Granulocyte Percent A 0.3 % (0-0.5); Lymphocytes Absolute Auto 1.85 K/mm3 (0.9-3.2); Lymphocytes Percent Auto 25.9 % (18.3-44.2); Mean Corpuscular HGB Conc 31.2 g/dl (32-36); Mean Corpuscular Hemoglobin 32.9 pg (26-34); Mean Corpuscular Volume 105.6 fl (80-100); Mean Platelet Volume 9.1 fl (7.4-10.4); Monocytes Absolute Auto 0.7 K/mm3 (0.1-0.6); Monocytes Percent Auto 9.2 % (2.6-8.5); Neutrophils Absolute Auto 4.2 K/mm3 (1.3-6.7); Neutrophils Percent Auto 59.4 % (45.5-73.1); Platelet Count Result 227 k/mm3 (150-375); Red Blood Count 3.04 M/mm3 (4.2-5.4); White Blood Count 7.1 K/mm3 (4.5-10.0)
[2022-07-14 17:07] LABS: Schistocytes None Seen (NORMAL)
[2022-07-14 17:08] LABS: Hypochromasia 1+ (NORMAL); Platelet Estimate Adequate (Adequate)
[2022-07-14 17:09] LABS: Anisocytosis 1+ (NORMAL)
[2022-07-14 17:25] LABS: Appearance Urine Slightly Cloudy (Clear); Bilirubin Urine Negative (Negative); Blood Urine Trace-intact (Negative); Color Urine Yellow (Yellow); Glucose Urine UA Negative (Negative); Ketones Urine Negative (Negative); Leukocyte Esterase Ur 3+ LEU/UL (Negative); Nitrate Urine Negative (Negative); Protein Urine 1+ mg/dL (Negative); Specific Grav Ur 1.015 (1.001-1.035); Urobilinogen Urine 0.2 mg/dL (<2.0)
[2022-07-14 17:32] LABS: Bacteria Urine Trace /hpf; RBC Urine 0-2 /hpf (0-2); WBC Urine >75 /hpf
[2022-07-14 17:33] LABS: Add Urine Microscopic? YES
== END 2022-07-14 14:51 | disposition home or self-care (01) ==
PROVIDERS: PCP Family Medicine; Visit Provider Nurse Practitioner Gerontology
DX: R30.0 Dysuria (principal); N17.9 Acute kidney failure, unspecified; D64.9 Anemia, unspecified
CPT/HCPCS: 36415; 81001; 85025; 87077; 87086; 87186

== ENCOUNTER 2022-08-02 13:01 | Emergency (ER) | payer OTHER, SELFPAY ==
[2022-08-02 14:07] VITALS: BP 153/75; PULSE 72; RESP 20; TEMP 36.1; O2SAT 100
--- NOTE | 2022-08-02 15:55 | ED.GENADULT ---
HPI - General Adult General Chief complaint: Urogenital-Female Stated complaint: uti Time Seen by Provider: 08/02/22 15:55 Source: patient Mode of arrival: ambulatory Limitations: no limitations History of Present Illness HPI narrative: 87-year-old female patient presents to the [facility] with complaints of urinary tract infection symptoms. Patient states she gets frequent UTIs and was just treated and did a 10 day course of antibiotics. Patient states a couple of days after she finished antibiotics her symptoms returned with pain with urination, lower abdominal pressure and low back pain. Patient states she tried calling her primary doctor however they referred her to her urologist. Her urologist states that they cannot see her until August 19. Patient does have history of stage 4 kidney disease and does self cath herself. Patient states she came in today because her doctor nor her urologist would treat her without a urine sample. Related Data Home Medications Medication Instructions Recorded Confirmed melatonin 5 mg capsule 5 mg PO HS 06/07/19 08/02/22 aspirin 81 mg chewable tablet 81 mg PO DAILY 09/19/20 08/02/22 metoprolol succinate 25 mg 25 mg PO DAILY 04/05/22 08/02/22 tablet,extended release 24 hr Allergies Allergy/AdvReac Type Severity Reaction Status Date / Time Estrogens Allergy Severe Swelling Verified 08/02/22 14:48 alendronate sodium AdvReac Unknown vomit Verified 08/02/22 14:48 ibandronate sodium AdvReac Unknown nausea Verified 08/02/22 14:48 raloxifene AdvReac Unknown nausea Verified 08/02/22 14:48 sulfamethizole AdvReac Unknown Nausea And Verified 08/02/22 14:48 Vomiting trimethoprim AdvReac Unknown Nausea And Verified 08/02/22 14:48 Vomiting Review of Systems Review of Systems: CONSTITUTIONAL: Denies fever, chills, or sweats. EYES: Denies visual changes, redness, or discharge. ENT: Denies rhinorrhea, congestion, sore throat, or otalgia. CARDIOVASCULAR: Denies chest pain, palpitations, or edema. RESPIRATORY: Denies cough or dyspnea. GASTROINTESTINAL: Lower abdominal pressure, denies nausea, vomiting, or diarrhea. GENITOURINARY: Positive dysuria, denies hematuria. SKIN: Denies rash or itching. MUSCULOSKELETAL: Positive low back pain, denies joint pain, or myalgia. NEUROLOGIC: Denies headache, numbness, or weakness. PSYCHIATRIC: Denies anxiety or depression. [facility] Past Medical History Medical History Atonic neurogenic bladder Chronic kidney disease with active medical management without dialysis, stage 4 (severe) With baseline creatinine between 1.6-2.1 since 2020 Chronic pain disorder Chronic respiratory failure with hypoxia, on home O2 therapy PFTs 02/2020 demonstrating moderate to severe restrictive ventilatory defect with combined obstructive defect and moderate reduced diffusion capacity COPD (chronic obstructive pulmonary disease) Diastolic dysfunction Echocardiogram 02/2020: Mild concentric left ventricular hypertrophy, grade 1 diastolic dysfunction, EF 67%, right ventricular systolic pressure could not be estimated due to inadequate visualization DVT (deep venous thrombosis) Nonocclusive thrombus of the left popliteal vein and left proximal femoral vein 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
== END 2022-08-02 16:13 | disposition home or self-care (01) ==
PROVIDERS: Emergency Provider Nurse Practitioner Family; PCP Family Medicine
DX: N39.0 Urinary tract infection, site not specified (principal); Z87.891 Personal history of nicotine dependence; J44.9 Chronic obstructive pulmonary disease, unspecified; Z86.718 Personal history of other venous thrombosis and embolism; K21.9 Gastro-esophageal reflux disease without esophagitis; E78.2 Mixed hyperlipidemia; I25.2 Old myocardial infarction; M35.3 Polymyalgia rheumatica; I12.9 Hypertensive chronic kidney disease with stage 1 through stage 4 chronic kidney disease, or unspecified chronic kidney disease; N18.4 Chronic kidney disease, stage 4 (severe); Z99.2 Dependence on renal dialysis; J96.11 Chronic respiratory failure with hypoxia; Z99.81 Dependence on supplemental oxygen; Z79.82 Long term (current) use of aspirin
CPT/HCPCS: 81003; 87077; 87086; 87186; 99213; G0463

== ENCOUNTER 2022-09-17 13:36 | Outpatient (CLI) | payer OTHER, SELFPAY ==
[2022-09-17 14:07] LABS: Hematocrit 31.3 % (37.0-47.0); Hemoglobin 9.8 g/dL (12.0-15.0); Mean Corpuscular HGB Conc 31.3 g/dl (32-36); Mean Corpuscular Hemoglobin 32.5 pg (26-34); Mean Corpuscular Volume 103.6 fl (80-100); Mean Platelet Volume 9.2 fl (7.4-10.4); Platelet Count Result 224 k/mm3 (150-375); Red Blood Count 3.02 M/mm3 (4.2-5.4); Red Cell Distribution Width 14.1 % (11.5-14.5); White Blood Count 6.2 K/mm3 (4.5-10.0)
[2022-09-17 14:18] LABS: Creatinine Urine 52.9 mg/dL; Total Protein Urine Random 26 mg/dL; Ur Ttl Prot Creatinine Ratio 0.49 mg/mg (0-0.20)
[2022-09-17 14:24] LABS: Iron 79 ug/dL (37-170)
[2022-09-17 14:26] LABS: Albumin Level 4.1 g/dL (3.5-5.1); Anion Gap 6 mmol/L (8-16); Blood Urea Nitrogen 59 mg/dL (7-17); Calcium 8.6 mg/dL (8.4-10.2); Carbon Dioxide 25 mmol/L (22-30); Chloride 107 mmol/L (98-107); Estimated Glomerular Filt Rate 16; Glucose 92 mg/dL (65-110); Phosphorus 4.8 mg/dL (2.5-4.5); Potassium 4.7 mmol/L (3.4-5.0); Sodium 138 mmol/L (137-145)
[2022-09-17 14:30] LABS: Parathyroid Intact 140.8 pg/mL (7.5-53.5)
[2022-09-17 14:34] LABS: Percent Iron Saturation 30 % (20-50)
[2022-09-17 14:39] LABS: Vitamin D 25 Hydroxy 63.8 ng/mL
[2022-09-17 15:39] LABS: Folic Acid > 20.0 ng/mL (2.76->20)
== END 2022-09-17 13:37 | disposition home or self-care (01) ==
LOC: ANHLAB 13:38
PROVIDERS: PCP Family Medicine; Visit Provider Internal Medicine Nephrology
DX: N18.4 Chronic kidney disease, stage 4 (severe) (principal); D63.1 Anemia in chronic kidney disease; E21.1 Secondary hyperparathyroidism, not elsewhere classified
CPT/HCPCS: 36415; 80069; 82306; 82570; 82607; 82746; 83540; 83550; 83970; 84156; 85027

== ENCOUNTER 2022-11-10 14:39 | Outpatient (CLI) | payer OTHER, SELFPAY ==
[2022-11-10 15:46] LABS: Hemoglobin 9.9 g/dL (12.0-15.0); Mean Corpuscular HGB Conc 30.9 g/dl (32-36); Mean Corpuscular Hemoglobin 32.7 pg (26-34); Mean Corpuscular Volume 105.6 fl (80-100); Mean Platelet Volume 9.8 fl (7.4-10.4); Platelet Count Result 225 k/mm3 (150-375); Red Blood Count 3.03 M/mm3 (4.2-5.4); Red Cell Distribution Width 14.9 % (11.5-14.5)
[2022-11-10 16:52] LABS: Albumin Level 4.2 g/dL (3.5-5.1); Anion Gap 10 mmol/L (8-16); Blood Urea Nitrogen 54 mg/dL (7-17); Calcium 8.6 mg/dL (8.4-10.2); Carbon Dioxide 23 mmol/L (22-30); Chloride 106 mmol/L (98-107); Estimated Glomerular Filt Rate 17; Glucose 85 mg/dL (65-110); Phosphorus 4.1 mg/dL (2.5-4.5); Potassium 4.9 mmol/L (3.4-5.0); Sodium 139 mmol/L (137-145)
[2022-11-10 17:19] LABS: Parathyroid Intact 190.3 pg/mL (7.5-53.5)
[2022-11-10 17:26] LABS: Creatinine Urine 69.9 mg/dL; Total Protein Urine Random 39 mg/dL; Ur Ttl Prot Creatinine Ratio 0.56 mg/mg (0-0.20)
== END 2022-11-10 14:40 | disposition home or self-care (01) ==
PROVIDERS: PCP Family Medicine; Visit Provider Internal Medicine Nephrology
DX: N18.4 Chronic kidney disease, stage 4 (severe) (principal)
CPT/HCPCS: 36415; 80069; 82570; 83970; 84156; 85027

== ENCOUNTER 2022-12-10 14:06 | Outpatient (CLI) | payer OTHER, MEDICAID, SELFPAY | END 2022-12-10 14:07 | disposition home or self-care (01) | PROVIDERS: PCP Family Medicine; Visit Provider Family Medicine | DX: H90.3 Sensorineural hearing loss, bilateral (principal) | CPT/HCPCS: 92557; 92567 ==

== ENCOUNTER 2023-01-07 14:30 | Outpatient (CLI) | payer OTHER, MEDICAID, SELFPAY ==
--- NOTE | ~2023-01-07 | CT_ITS ---
EXAMINATION: CT abdomen pelvis wo con DATE: 01/07/2023 15:01 INDICATION: Recurrent cystitis TECHNIQUE: Computed tomography (CT) of the abdomen and pelvis was performed without intravenous contr ast. Automated exposure control and iterative reconstruction technique were employed. Exam dose: 392 .78 mGy-cm total exam DLP. COMPARISON: 01/07/2023 KUB 04/04/2022 CT abdomen pelvis noncontrast examination FINDINGS: The lung bases are clear of infiltrate or consolidation. Heart size is within normal range. No pericardial or pleural effusion. Small sliding hiatal hernia. The liver, gallbladder, bile ducts, pancreas, pancreatic duct are unremarkable. Normal splenic size. 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 Normal morphology of the adrenal glands. Right lower pole exophytic approximately 6.2 cm cyst there are multiple much smaller left renal proba ble cysts, including some high density probable hemorrhagic or proteinaceous cysts. Left renal malign petey would be less likely. No urinary tract calculus or hydroureteronephrosis. The urinary bladder is unremarkable. Status post hysterectomy. There is atherosclerotic calcification of the abdominal aorta but no abdominal aortic aneurysm. No in traperitoneal or retroperitoneal or pelvic mass lesion or adenopathy or ascites is detected. As a prominent amount of fecal material throughout the rectum and colon. No bowel obstruction, bowel wall thickening, pneumatosis or intraperitoneal free air is detected. Osteopenia. Moderately severe degenerative disc disease at L5-S1 No suspicious osteolytic or osteoblastic lesions are noted. IMPRESSION: Bilateral renal cysts No urinary tract calculus or hydroureteronephrosis Status post hysterectomy, probable appendectomy Small sliding hiatal hernia Reviewed, dictated and finalized at Location [facility]. Reviewed, dictated and finalized at location []
--- NOTE | ~2023-01-07 | XR_ITS ---
EXAMINATION: XR abdomen/kub 1V INDICATION: Recurrent cystitis TECHNIQUE: Supine views of the abdomen were obtained on 2 radiographs. COMPARISON: CT, 04/04/2022 FINDINGS: There are phleboliths of the pelvis. A large volume of colonic stool is present. No urolith iasis is identified. Hyperattenuating material is noted in diverticula of the ascending colon. IMPRESSION: 1. No radiographic correlate for the patient's symptoms. Reviewed, dictated and finalized at location F.
== END 2023-01-07 14:31 | disposition home or self-care (01) ==
LOC: ANHIMG 14:33
PROVIDERS: PCP Family Medicine; Visit Provider Nurse Practitioner Adult Health
DX: N30.90 Cystitis, unspecified without hematuria (principal); N28.1 Cyst of kidney, acquired; K44.9 Diaphragmatic hernia without obstruction or gangrene
CPT/HCPCS: 74018; 74176

== ENCOUNTER 2023-01-12 14:30 | Outpatient (CLI) | payer OTHER, MEDICAID, SELFPAY ==
[2023-01-12 15:28] LABS: Hematocrit 30.4 % (37.0-47.0); Hemoglobin 9.5 g/dL (12.0-15.0); Mean Corpuscular HGB Conc 31.3 g/dl (32-36); Mean Corpuscular Hemoglobin 32.9 pg (26-34); Mean Corpuscular Volume 105.2 fl (80-100); Mean Platelet Volume 9.2 fl (7.4-10.4); Platelet Count Result 219 k/mm3 (150-375); Red Blood Count 2.89 M/mm3 (4.2-5.4); Red Cell Distribution Width 13.7 % (11.5-14.5)
[2023-01-12 15:38] LABS: Anion Gap 9 mmol/L (8-16); Blood Urea Nitrogen 60 mg/dL (7-17); Calcium 8.5 mg/dL (8.4-10.2); Carbon Dioxide 23 mmol/L (22-30); Chloride 104 mmol/L (98-107); Estimated Glomerular Filt Rate 17; Glucose 86 mg/dL (65-110); Phosphorus 4.8 mg/dL (2.5-4.5); Potassium 5.2 mmol/L (3.4-5.0); Sodium 136 mmol/L (137-145)
[2023-01-12 15:46] LABS: Creatinine Urine 66.7 mg/dL; Total Protein Urine Random 26 mg/dL; Ur Ttl Prot Creatinine Ratio 0.39 mg/mg (0-0.20)
[2023-01-12 15:56] LABS: Parathyroid Intact 143.7 pg/mL (7.5-53.5)
[2023-01-12 16:20] LABS: Vitamin D 25 Hydroxy 59.3 ng/mL
== END 2023-01-12 14:31 | disposition home or self-care (01) ==
LOC: ANHLAB 14:32
PROVIDERS: PCP Family Medicine; Visit Provider Internal Medicine Nephrology
DX: N18.4 Chronic kidney disease, stage 4 (severe) (principal); E21.1 Secondary hyperparathyroidism, not elsewhere classified
CPT/HCPCS: 36415; 80069; 82306; 82570; 83970; 84156; 85027

== ENCOUNTER 2023-02-18 13:54 | Outpatient (CLI) | payer OTHER, SELFPAY ==
[2023-02-18 14:35] LABS: Basophils Absolute Auto 0.1 K/mm3 (0.0-0.1); Basophils Percent Auto 0.8 % (0.2-1.2); Eosinophils Absolute Auto 0.2 K/mm3 (0-0.3); Eosinophils Percent Auto 3.5 % (0-4.4); Hematocrit 32.2 % (37.0-47.0); Hemoglobin 10.1 g/dL (12.0-15.0); Immature Granulocyte Absolute 0.02 K/mm3 (0.00-0.031); Immature Granulocyte Percent A 0.3 % (0-0.5); Lymphocytes Absolute Auto 1.67 K/mm3 (0.9-3.2); Lymphocytes Percent Auto 25.2 % (18.3-44.2); Mean Corpuscular HGB Conc 31.4 g/dl (32-36); Mean Corpuscular Hemoglobin 32.2 pg (26-34); Mean Corpuscular Volume 102.5 fl (80-100); Mean Platelet Volume 9.5 fl (7.4-10.4); Monocytes Absolute Auto 0.7 K/mm3 (0.1-0.6); Monocytes Percent Auto 10.8 % (2.6-8.5); Neutrophils Percent Auto 59.4 % (45.5-73.1); Platelet Count Result 204 k/mm3 (150-375); Red Blood Count 3.14 M/mm3 (4.2-5.4); Red Cell Distribution Width 13.8 % (11.5-14.5); White Blood Count 6.6 K/mm3 (4.5-10.0)
[2023-02-18 16:32] LABS: Folic Acid > 20.0 ng/mL (2.76->20)
== END 2023-02-18 13:55 | disposition home or self-care (01) ==
LOC: ANHLAB 13:55
PROVIDERS: PCP Family Medicine; Visit Provider Physician Assistant
DX: D64.9 Anemia, unspecified (principal)
CPT/HCPCS: 36415; 82607; 82746; 85025

== ENCOUNTER 2023-05-12 14:15 | Outpatient (CLI) | payer OTHER, SELFPAY ==
[2023-05-12 15:13] LABS: Hematocrit 31.3 % (37.0-47.0); Hemoglobin 9.8 g/dL (12.0-15.0); Mean Corpuscular HGB Conc 31.3 g/dl (32-36); Mean Corpuscular Hemoglobin 32.7 pg (26-34); Mean Corpuscular Volume 104.3 fl (80-100); Mean Platelet Volume 9.8 fl (7.4-10.4); Platelet Count Result 208 k/mm3 (150-375); Red Cell Distribution Width 13.5 % (11.5-14.5); White Blood Count 5.9 K/mm3 (4.5-10.0)
[2023-05-12 15:25] LABS: Parathyroid Intact 203.2 pg/mL (7.5-53.5)
[2023-05-12 15:28] LABS: Creatinine Urine 68.8 mg/dL; Total Protein Urine Random 29 mg/dL; Ur Ttl Prot Creatinine Ratio 0.42 mg/mg (0-0.20)
[2023-05-12 15:41] LABS: Albumin Level 3.8 g/dL (3.5-5.1); Anion Gap 6 mmol/L (8-16); Blood Urea Nitrogen 48 mg/dL (7-17); Calcium 8.7 mg/dL (8.4-10.2); Carbon Dioxide 26 mmol/L (22-30); Chloride 105 mmol/L (98-107); Estimated Glomerular Filt Rate 16; Glucose 130 mg/dL (65-110); Phosphorus 4.2 mg/dL (2.5-4.5); Potassium 4.9 mmol/L (3.4-5.0); Sodium 137 mmol/L (137-145)
== END 2023-05-12 14:16 | disposition home or self-care (01) ==
LOC: ANHLAB 14:18
PROVIDERS: PCP Family Medicine; Visit Provider Internal Medicine Nephrology
DX: J44.1 Chronic obstructive pulmonary disease with (acute) exacerbation (principal)
CPT/HCPCS: 36415; 80069; 82570; 83970; 84156; 85027

== ENCOUNTER 2023-05-15 12:00 | Outpatient (RCR) | payer OTHER, SELFPAY | END 2023-05-15 23:59 | disposition home or self-care (01) | LOC: ANHAUDIO 12:00 | PROVIDERS: PCP Family Medicine; Visit Provider Family Medicine | DX: Z46.1 Encounter for fitting and adjustment of hearing aid (principal) | CPT/HCPCS: 99199; V5260 ==

== ENCOUNTER 2023-08-17 13:12 | Outpatient (CLI) | payer OTHER, MEDICAID, SELFPAY ==
--- NOTE | ~2023-08-17 | XR_ITS ---
EXAMINATION: XR UGIAC w barium swallow DATE: 08/17/2023 14:32 INDICATION: Pharyngeal dysphagia and indigestion TECHNIQUE: The patient drank thick barium, gas-producing crystals, and thin barium. Fluoroscopic spot radiographs of the hypopharynx, esophagus, stomach and proximal small bowel were obtained. Fluorosco py exposure time was 2.3 minutes. A total of 1492 fluoroscopic images were recorded. Total DAP was 8. 063 Gycm^2 COMPARISON: None. FINDINGS: There is asymmetry to the piriform sinuses with irregular mucosal contour and retention of contrast w ithin the right piriform sinus. The esophagus is normal without mass or stricture. Esophageal motilit y is normal. There is a small sliding-type hiatal hernia with gastroesophageal junction approximately 4 cm above level of the diaphragm. There was a single episode of spontaneous gastroesophageal reflux of a small amount of contrast anterior distal third of the esophagus which was unable to be reproduc ed with provocative maneuvers. The stomach is otherwise normal. There is no intestinal malrotation wi th the duodenal jejunal junction located to the right of the midline and below the level of the gastr ic pylorus. The visualized proximal esophagus is otherwise unremarkable. IMPRESSION: 1. Pharyngeal asymmetry with irregular mucosal contour and contrast pooling in the right piriform sin us. Recommend laryngoscopy for direct visualization. 2. Small sliding-type hiatal hernia with single episode of spontaneous gastroesophageal reflux. 3. Intestinal malrotation. Reviewed, dictated and finalized at location A. OSOFT EXCHANGE ADMINISTRATOR IMPRESSION: 1. Pharyngeal asymmetry with irregular mucosal contour and contrast pooling in the right piriform sinus. Recommend laryngoscopy for direct visualization. 2. Small sliding-type hiatal hernia with single episode of spontaneous gastroes ophageal reflux. 3. Intestinal malrotation.
== END 2023-08-17 13:13 | disposition home or self-care (01) ==
LOC: ANHIMG 13:13
PROVIDERS: PCP Family Medicine; Visit Provider Family Medicine
DX: R13.13 Dysphagia, pharyngeal phase (principal); K44.9 Diaphragmatic hernia without obstruction or gangrene; Q43.3 Congenital malformations of intestinal fixation
CPT/HCPCS: 74246

== ENCOUNTER 2023-09-02 01:36 | Day surgery (SDC) | payer OTHER, MEDICAID, SELFPAY ==
[2023-08-25 14:48] VITALS: BMI 25.8
--- NOTE | 2023-08-31 13:02 | SUR.PREOP ---
Patient called regarding upcoming procedure. Pt updated on arrival date and time. All questions answered.
[2023-09-02 08:05] VITALS: BP 126/56; PULSE 65; RESP 18; TEMP 35.8; O2SAT 100
[2023-09-02] MEDS: LACTATED RINGERS 1,000 ML 150 ML IV CONT (08:20)
--- NOTE | 2023-09-02 08:40 | WPDANESEPPF ---
Anes - Initial Pre Proc Eval Procedure: Operation Date: 09/02/23 09:00 Proposed Procedures p Esophagogastroduodenoscopy - Brent Kraus MD Date/Time: 09/02/23 08:40 Surgeon: Brent Kraus MD Pre Op Diagnosis: Dysphagia Patient Data Age: 88 Gender: F Height: 1.63 m Weight: 70 kg Last Vital Signs Temp 96.5 F L 09/02/23 08:05 Pulse 65 09/02/23 08:05 Resp 18 09/02/23 08:05 BP 126/56 L 09/02/23 08:05 Pulse Ox 100 09/02/23 08:05 O2 Del Method Nasal Cannula 09/02/23 08:05 O2 Flow Rate 2 09/02/23 08:05 Allergies Allergy/AdvReac Type Severity Reaction Status Date / Time Estrogens Allergy Severe Swelling Verified 09/02/23 08:03 alendronate sodium AdvReac Unknown vomit Verified 09/02/23 08:03 ibandronate sodium AdvReac Unknown nausea Verified 09/02/23 08:03 raloxifene AdvReac Unknown nausea Verified 09/02/23 08:03 sulfamethizole AdvReac Unknown Nausea And Verified 09/02/23 08:03 Vomiting trimethoprim AdvReac Unknown Nausea And Verified 09/02/23 08:03 Vomiting Home Medications Medication Instructions Recorded Confirmed Type melatonin 5 mg capsule 5 mg PO HS 06/07/19 08/25/23 History amlodipine 5 mg tablet 5 mg PO DAILY #60 tabs 11/10/22 09/02/23 Rx fluoxetine 20 mg capsule See Rx Instructions .Route 11/24/22 08/25/23 Rx .COMPLEX #90 caps omeprazole 20 mg capsule,delayed 20 mg PO .AM #100 caps 11/27/22 08/25/23 Rx release cholecalciferol (vitamin D3) 25 25 mcg PO DAILY 02/18/23 08/25/23 History mcg (1,000 unit) tablet ferrous sulfate 325 mg (65 mg 325 mg PO DAILY 02/18/23 08/25/23 History iron) tablet mecobalamin (vitamin B12) 1,000 1,000 mcg sublingual DAILY 02/18/23 08/25/23 History mcg disintegrating tablet,sublingual fluticasone fur. 100 mcg-umeclid 1 inh inhalation DAILY #60 ea 05/24/23 08/25/23 Rx 62.5 mcg-vilant 25 mcg inhalat.powder (Trelegy Ellipta) ropinirole 0.5 mg tablet See Rx Instructions .Route 06/28/23 08/25/23 Rx .COMPLEX #100 tabs metoprolol succinate 25 mg See Rx Instructions .Route 07/01/23 09/02/23 Rx tablet,extended release 24 hr .COMPLEX #90 tabs apixaban 2.5 mg tablet (Eliquis) See Rx Instructions .Route 07/21/23 09/02/23 Rx .COMPLEX #60 tabs albuterol sulfate 90 mcg/actuation 1 - 2 puff inhalation Q4-6H PRN 08/20/23 08/25/23 Rx aerosol inhaler shortness of breath or wheezing #8.5 grams hydrocodone 7.5 mg-acetaminophen 1 tablet PO BID PRN pain #60 tabs 08/28/23 Rx 325 mg tablet Patient hx anesthesia problems: none Family hx anesthesia problems: none Results Review: All pre-operative results and documents have been reviewed as part of the pre-operative evaluation. [facility] Past Medical History Medical History Atonic neurogenic bladder Chronic kidney disease with active medical management without dialysis, stage 4 (severe) With baseline creatinine between 1.6-2.1 since 2020 Chronic pain disorder Chronic respiratory failure with hypoxia, on home O2 therapy PFTs 02/2020 demonstrating moderate to severe restrictive ventilatory defect with combined obstructive defect and moderate reduced diffusion capacity COPD (chronic obstructive pulmonary disease) Diastolic dysfunction Echocardiogram 02/2020: Mild concentric left ventricular hypertrophy, grade 1 diastolic dysfunction, EF 67%, right ventricular systolic pressure could not be estimated due to inadequate visualization DVT (deep venous thrombosis) Nonocclusive thrombus of the left popliteal vein and left proximal femoral vein 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
--- NOTE | 2023-09-02 08:59 | PM.HPGS ---
History of Present Illness History of Present Illness Consent: Risks, benefits, and alternatives have been discussed and questions answered. Patient agrees to proceed with procedure. Chief complaint: Dysphagia Narrative: Codie Duarte is a 88 year old female with dysphagia even to liquids, had EGD 2020 with empiric dilation without any major abnormalities Review of Systems Constitutional: Constitutional: Denies headache(s) and Denies weakness Eyes: Eyes: Denies blurry vision ENT: Reports Normal hearing present, Denies headache(s) and Denies neck pain Cardiovascular: Cardiovascular: Denies chest pain and Denies dyspnea Respiratory: Respiratory: Denies dyspnea Gastrointestinal: Gastrointestinal: Reports no additional gastrointestinal complaints Genitourinary: Genitourinary: Denies dysuria Musculoskeletal: Musculoskeletal: Denies neck pain Integumentary/Breasts: Skin/Breast: Denies dry skin Neurologic: Reports Normal hearing present, Denies headache(s) and Denies weakness Psychiatric: Psychiatric: Denies anxiety Endocrine: Endocrine: Denies change in body appearance Hematologic/Lymphatic: Hematologic/Lymphatic: Denies easy bleeding Allergic/Immunologic: Allergic/Immunologic: Denies urticaria PMF Past Medical History Medical History Atonic neurogenic bladder Chronic kidney disease with active medical management without dialysis, stage 4 (severe) With baseline creatinine between 1.6-2.1 since 2020 Chronic pain disorder Chronic respiratory failure with hypoxia, on home O2 therapy PFTs 02/2020 demonstrating moderate to severe restrictive ventilatory defect with combined obstructive defect and moderate reduced diffusion capacity COPD (chronic obstructive pulmonary disease) Diastolic dysfunction Echocardiogram 02/2020: Mild concentric left ventricular hypertrophy, grade 1 diastolic dysfunction, EF 67%, right ventricular systolic pressure could not be estimated due to inadequate visualization DVT (deep venous thrombosis) Nonocclusive thrombus of the left popliteal vein and left proximal femoral vein 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 (09/2017) No significant coronary artery disease History of colonoscopy with polypectomy (~2012) History of tonsillectomy History of total hysterectomy with bilateral salpingo-oophorectomy (BSO) Status post cataract extraction of both eyes with insertion of intraocular lens Status post open reduction with internal fixation (ORIF) of fracture of ankle Left ankle Status post open reduction with internal fixation of fracture Left patella Family History Family History Mother Cerebrovascular accident, Onset Age: 61 CHF (congestive heart failure) Daughter Multiple sclerosis Both daughters Other Hypertension Social History Social History Social History: The patient smoked up to 2 packs of cigarettes per day for 30 years but quit smoking in 1985. Code status: Patient would not want CPR. She really is uncertain if she would even want intubated but she is willing to give a short trial of intubation and try. She would not want a trach or PEG. Surrogate decision maker: Way
[2023-09-02 09:10] VITALS: BP 121/59; PULSE 62; RESP 20; O2SAT 98
[2023-09-02 09:20] VITALS: BP 120/61; PULSE 58; RESP 20; O2SAT 100
[2023-09-02 09:30] VITALS: BP 123/61; PULSE 56; RESP 20; O2SAT 100
== END 2023-09-02 09:43 | disposition home or self-care (01) ==
PROVIDERS: PCP Family Medicine; Visit Provider Internal Medicine Gastroenterology
PROC: 0DJ08ZZ Inspection of Upper Intestinal Tract, Via Natural or Artificial Opening Endoscopic (ICD-10-PCS; CPT 43235; principal; 2023-09-02 09:00)
DX: K29.50 Unspecified chronic gastritis without bleeding (principal); K44.9 Diaphragmatic hernia without obstruction or gangrene; I13.10 Hypertensive heart and chronic kidney disease without heart failure, with stage 1 through stage 4 chronic kidney disease, or unspecified chronic kidney disease; N18.4 Chronic kidney disease, stage 4 (severe); J96.11 Chronic respiratory failure with hypoxia; Z99.81 Dependence on supplemental oxygen; G89.29 Other chronic pain; J44.9 Chronic obstructive pulmonary disease, unspecified; N31.9 Neuromuscular dysfunction of bladder, unspecified; E78.2 Mixed hyperlipidemia; I25.2 Old myocardial infarction; F33.1 Major depressive disorder, recurrent, moderate; M81.0 Age-related osteoporosis without current pathological fracture; M35.3 Polymyalgia rheumatica; Z79.01 Long term (current) use of anticoagulants; Z86.718 Personal history of other venous thrombosis and embolism; Z87.891 Personal history of nicotine dependence; Z79.51 Long term (current) use of inhaled steroids; Z79.891 Long term (current) use of opiate analgesic
CPT/HCPCS: 43239; 43450; 88305; J2704; J7120

== ENCOUNTER 2023-09-25 14:04 | Outpatient (CLI) | payer OTHER, MEDICAID, SELFPAY ==
[2023-09-25 14:49] LABS: Hemoglobin 9.7 g/dL (12.0-15.0); Mean Corpuscular HGB Conc 29.4 g/dl (32-36); Mean Corpuscular Hemoglobin 30.6 pg (26-34); Mean Corpuscular Volume 104.1 fl (80-100); Mean Platelet Volume 9.1 fl (7.4-10.4); Platelet Count Result 200 k/mm3 (150-375); Red Blood Count 3.17 M/mm3 (4.2-5.4); Red Cell Distribution Width 14.8 % (11.5-14.5); White Blood Count 5.9 K/mm3 (4.5-10.0)
[2023-09-25 15:11] LABS: Albumin Level 3.8 g/dL (3.5-5.1); Anion Gap 7 mmol/L (8-16); Blood Urea Nitrogen 44 mg/dL (7-17); Calcium 8.8 mg/dL (8.4-10.2); Carbon Dioxide 24 mmol/L (22-30); Chloride 106 mmol/L (98-107); Estimated Glomerular Filt Rate 19; Glucose 115 mg/dL (65-110); Phosphorus 4.2 mg/dL (2.5-4.5); Potassium 4.9 mmol/L (3.4-5.0); Sodium 137 mmol/L (137-145)
[2023-09-25 18:10] LABS: Parathyroid Intact 162.7 pg/mL (7.5-53.5)
[2023-09-25 18:14] LABS: Vitamin D 25 Hydroxy 58.9 ng/mL
[2023-09-25 18:39] LABS: Creatinine Urine 61.6 mg/dL; Total Protein Urine Random 29 mg/dL; Ur Ttl Prot Creatinine Ratio 0.47 mg/mg (0-0.20)
== END 2023-09-25 14:05 | disposition home or self-care (01) ==
PROVIDERS: PCP Family Medicine; Visit Provider Internal Medicine Nephrology
DX: E21.1 Secondary hyperparathyroidism, not elsewhere classified (principal); E78.2 Mixed hyperlipidemia; I12.9 Hypertensive chronic kidney disease with stage 1 through stage 4 chronic kidney disease, or unspecified chronic kidney disease; N18.4 Chronic kidney disease, stage 4 (severe); D63.1 Anemia in chronic kidney disease
CPT/HCPCS: 36415; 80069; 82306; 82570; 83970; 84156; 85027

== ENCOUNTER 2023-12-11 12:25 | Outpatient (CLI) | payer OTHER, SELFPAY ==
[2023-12-11 13:00] VITALS: PULSE 64; O2SAT 96
[2023-12-11 13:05] VITALS: PULSE 88; O2SAT 88
[2023-12-11 13:06] VITALS: PULSE 89; O2SAT 94
[2023-12-11 13:15] VITALS: PULSE 66; O2SAT 96
--- NOTE | 2023-12-11 14:06 | HOMEO2EVAL ---
Evaluation was performed at [facility] Home Oxygen Evaluation RC: Home Oxygen (O2) Evaluation Start: 12/11/23 14:04 Freq: Status: Active Protocol: RPE Activity Type Activity Date Activity User E-sign Co-sign Detail Recorded Client Recorded Date Recorded By Document 12/11/23 13:00 HARLEY [email or web address] 12/11/23 14:06 HARLEY Document 12/11/23 13:05 HARLEY [email or web address] 12/11/23 14:06 HARLEY Document 12/11/23 13:06 HARLEY [email or web address] 12/11/23 14:06 HARLEY Document 12/11/23 13:15 HARLEY [email or web address] 12/11/23 14:06 HARLEY 12/11/23 12/11/23 12/11/23 13:00 13:05 13:06 Home O2 Evaluation [Oxygen] -Test Phase Resting Exercise Exercise -Oxygen Delivery Room Air Room Air Nasal Cannula -Oxygen Flow Rate (L/min) 2 [Pulse Oximetry] -Pulse Oximetry (90-100 %) 96 88 L 94 [Pulse Rate] -Pulse Rate (60-100 beats/min) 64 88 89 [Comments] -Home Oxygen Evaluation Comments Pt requires 2 L with activity, room air at rest. [Charges] -Evaluation Charges O2 Evaluation by Pulmonary 12/11/23 13:15 Home O2 Evaluation [Oxygen] -Test Phase Resting -Oxygen Delivery Room Air -Oxygen Flow Rate (L/min) [Pulse Oximetry] -Pulse Oximetry (90-100 %) 96 [Pulse Rate] -Pulse Rate (60-100 beats/min) 66 [Comments] -Home Oxygen Evaluation Comments [Charges] -Evaluation Charges
--- NOTE | 2023-12-11 14:06 | PCRCNOTE ---
Home O2 eval faxed to office staff. 2 L with activity, pt has personal POC
== END 2023-12-11 12:26 | disposition home or self-care (01) ==
LOC: ANHPFT 12:27
PROVIDERS: PCP Family Medicine; Visit Provider Internal Medicine Critical Care Medicine
DX: J44.9 Chronic obstructive pulmonary disease, unspecified (principal); Z99.81 Dependence on supplemental oxygen
CPT/HCPCS: 94618

== ENCOUNTER 2023-12-31 13:30 | Outpatient (RCR) | payer OTHER, MEDICAID, SELFPAY ==
--- NOTE | 2023-12-04 12:50 | STOPEVAL1 ---
Assessment and note entered by Dipti Slater PROCESS SAFETY ENGINEER Evaluation Information Assessment Status Evaluation Reported Pain Level Pain Score 0: Self Report Assessment ST Clinical Summary BEDSIDE SWALLOW EVALUATION This patient was seen for a Bedside Swallow Evaluation at the request of her physician. She reports that she has had difficulty swallowing for several years, and reported she underwent an EGD in September of this year to have her throat stretched to assist with improved swallowing; she reported that it helped some but did not prevent her from coughing/choking on thin liquids. Patient reports coughing on thin liquids but reported no concerns with semi-solid and solid foods. reported that when the patient starts talking to quickly, she will become choked on her own saliva. Patient also reports a hoarse voice with reduced vocal loudness. This will be further assessed at a subsequent visit. This Bedside Swallow Evaluation was administered to assess patient's risk for aspiration and to determine if she would benefit from skilled Speech Therapy. Patient consumed thin water per cup and also per straw, and a cough was observed on at least one presentation of each of the water methods. Patient again showed throat clearing and coughing on the fruit cocktail and syrup in spite of some of the syrup being removed. She exhibited no signs of distress on the pudding consistency. Patient denied any shortness of breath while consuming these evaluation materials or while consuming meals at home. Therapist instructed the patient and in the anatomy and physiology of normal and abnormal swallowing and also in the use of head flexion to prevent aspiration. They voiced understanding. Additionally, patient will be seen two times weekly for 8 visits to address swallowing strengthening exercises and additional safe swallowing techniques. They were in agreement to return for skilled Speech Therapy. A Modified Barium Swallow study could be recommended however at this time since patient voices understanding of head flexion and is
--- NOTE | 2023-12-21 16:00 | PCSTNOTE ---
The patient treatment was not able to be completed on 12/17 due to patient's was ill and had to go to ER. Will plan to continue treatment per plan of care.
--- NOTE | 2023-12-29 16:07 | PCSTNOTE ---
The patient treatment was not able to be completed on 12/28 due to fall earlier today or in the past few days. Will plan to continue treatment per plan of care.
--- NOTE | 2024-01-04 13:09 | PCSTNOTE ---
Therapist spoke last session with patient and about attending last session today at 12:30 however they did not come to session. Therapist called at 1:09 and no one answered home phone and voice mail not set up. Therapist spoke with front office concerning rescheduling if they call.
--- NOTE | 2024-01-05 15:26 | STOPDC ---
Assessment and note entered by Dipti Slater CHEMICAL LABORATORY CHIEF Evaluation Information Assessment Status Discharge - Pt Not Presen Assessment ST Clinical Summary DISCHARGE SUMMARY Patient was seen for an initial Speech Therapy evaluation and six treatment sessions addressing swallowing strengthening exercises and safe swallowing strategies. She voiced and demonstrated good understanding of swallowing exercises and strategies however when asked, she reported that she felt her swallowing had improved because she became more aware of how to avoid difficulty swallowing including strategies to use to facilitate comfortable swallowing skills. She did not admit that she felt completing the swallowing exercises was helpful and it was difficult to determine if this was because she was not completing them regularly or if it truly was because she was completing them and noticing no significant change in her swallowing. Patient also complained of hoarse voice that waxed and waned and no significant change was noted in the quality of the voice by time of discharge. Patient was discharged with all goals achieved at this time. She is welcome to contact therapist and/or return for additional therapy should she feel it necessary. Plan of Care ST Services Indicated No
== END 2024-01-05 16:05 | disposition home or self-care (01) ==
LOC: ANHST 13:30
PROVIDERS: PCP Family Medicine; Visit Provider Internal Medicine Critical Care Medicine
DX: R13.10 Dysphagia, unspecified (principal)
CPT/HCPCS: 92507; 92526; 92610

== ENCOUNTER 2024-01-29 14:53 | Outpatient (CLI) | payer OTHER, SELFPAY ==
--- NOTE | ~2024-01-29 | XR_ITS ---
XR chest 2V Ordering provider: Dipti Chow MD History: 88 years Female with . R09.89 - Other specified symptoms and signs involving the... . Comparison: September 20, 2021 FINDINGS: MEDIASTINUM: The cardiac silhouette is not enlarged. LUNGS: No infiltrates, effusions or pneumothorax. Emphysematous changes. OTHER: No free air under the diaphragm. Degenerative changes of the spine. S-shaped scoliosis. IMPRESSION: No acute cardiopulmonary pathology. Reviewed, dictated and finalized at location A.
== END 2024-01-29 14:54 | disposition home or self-care (01) ==
LOC: ANHIMG 14:55
PROVIDERS: PCP Family Medicine; Visit Provider Internal Medicine Critical Care Medicine
DX: R09.89 Other specified symptoms and signs involving the circulatory and respiratory systems (principal)
CPT/HCPCS: 71046

== ENCOUNTER 2024-02-01 15:30 | Outpatient (CLI) | payer OTHER, SELFPAY ==
[2024-02-01 15:56] LABS: Hematocrit 31.9 % (37.0-47.0); Mean Corpuscular HGB Conc 31.3 g/dl (32-36); Mean Corpuscular Hemoglobin 32.8 pg (26-34); Mean Corpuscular Volume 104.6 fl (80-100); Mean Platelet Volume 9.3 fl (7.4-10.4); Platelet Count Result 223 k/mm3 (150-375); Red Blood Count 3.05 M/mm3 (4.2-5.4); White Blood Count 6.5 K/mm3 (4.5-10.0)
[2024-02-01 16:11] LABS: Anion Gap 6 mmol/L (4-12); Blood Urea Nitrogen 50 mg/dL (7-17); Calcium 8.7 mg/dL (8.4-10.2); Carbon Dioxide 24 mmol/L (22-30); Chloride 110 mmol/L (98-107); Estimated Glomerular Filt Rate 18; Glucose 94 mg/dL (65-110); Phosphorus 4.1 mg/dL (2.5-4.5); Potassium 4.7 mmol/L (3.4-5.0); Sodium 140 mmol/L (137-145)
[2024-02-01 16:21] LABS: Parathyroid Intact 177.5 pg/mL (7.5-53.5)
[2024-02-01 16:22] LABS: Iron 55 ug/dL (37-170)
[2024-02-01 16:24] LABS: Total Protein Urine Random 36 mg/dL; Ur Ttl Prot Creatinine Ratio 0.49 mg/mg (0-0.20)
[2024-02-01 16:32] LABS: Percent Iron Saturation 19 % (20-50)
[2024-02-01 16:50] LABS: Vitamin D 25 Hydroxy 53.3 ng/mL
== END 2024-02-01 15:31 | disposition home or self-care (01) ==
LOC: ANHLAB 15:34
PROVIDERS: PCP Family Medicine; Visit Provider Internal Medicine Nephrology
DX: I12.9 Hypertensive chronic kidney disease with stage 1 through stage 4 chronic kidney disease, or unspecified chronic kidney disease (principal); N18.4 Chronic kidney disease, stage 4 (severe); D63.1 Anemia in chronic kidney disease; E21.1 Secondary hyperparathyroidism, not elsewhere classified; E78.2 Mixed hyperlipidemia
CPT/HCPCS: 36415; 80069; 82306; 82570; 82728; 83540; 83550; 83970; 84156; 85027

== ENCOUNTER 2024-06-03 14:39 | Outpatient (CLI) | payer OTHER, SELFPAY ==
[2024-06-03 15:07] LABS: Hematocrit 32.6 % (37.0-47.0); Hemoglobin 9.8 g/dL (12.0-15.0); Mean Corpuscular HGB Conc 30.1 g/dl (32-36); Mean Corpuscular Hemoglobin 31.7 pg (26-34); Mean Corpuscular Volume 105.5 fl (80-100); Mean Platelet Volume 9.4 fl (7.4-10.4); Platelet Count Result 229 k/mm3 (150-375); Red Blood Count 3.09 M/mm3 (4.2-5.4); Red Cell Distribution Width 14.5 % (11.5-14.5); White Blood Count 5.7 K/mm3 (4.5-10.0)
[2024-06-03 15:17] LABS: Albumin Level 4.1 g/dL (3.5-5.1); Anion Gap 10 mmol/L (4-12); Blood Urea Nitrogen 57 mg/dL (7-17); Calcium 8.9 mg/dL (8.4-10.2); Carbon Dioxide 23 mmol/L (22-30); Chloride 105 mmol/L (98-107); Estimated Glomerular Filt Rate 17; Glucose 95 mg/dL (65-110); Phosphorus 4.7 mg/dL (2.5-4.5); Potassium 4.4 mmol/L (3.4-5.0); Sodium 138 mmol/L (137-145)
[2024-06-03 15:29] LABS: Parathyroid Intact 150.1 pg/mL (14.5-75.2)
[2024-06-03 15:50] LABS: Vitamin D 25 Hydroxy 50.1 ng/mL
[2024-06-03 15:54] LABS: Creatinine Urine 89.8 mg/dL; Total Protein Urine Random 30 mg/dL; Ur Ttl Prot Creatinine Ratio 0.33 mg/mg (0-0.20)
== END 2024-06-03 14:40 | disposition home or self-care (01) ==
PROVIDERS: PCP Family Medicine; Visit Provider Internal Medicine Nephrology
DX: E21.1 Secondary hyperparathyroidism, not elsewhere classified (principal); N18.4 Chronic kidney disease, stage 4 (severe); D63.1 Anemia in chronic kidney disease
CPT/HCPCS: 36415; 80069; 82306; 82570; 83970; 84156; 85027

== ENCOUNTER 2024-06-22 14:59 | Outpatient (CLI) | payer OTHER, SELFPAY ==
--- NOTE | ~2024-06-22 | XR_ITS ---
EXAMINATION: XR lumbar spine 2-3V DATE: 06/22/2024 15:30 INDICATION: Dorsalgia, unspecified. TECHNIQUE: 3 views of lumbar spine were obtained. COMPARISON: None. FINDINGS: There is 18 degrees dextroscoliosis of the lumbar spine. Vertebral body heights are normal. There is mildly decreased disc height at L2-L3 and severely decreased disc height at L5-S1. There is multilevel facet joint osteoarthritis, severe in lower lumbar spine. IMPRESSION: 1. Severe lower lumbar spondylosis. 2. Thoracolumbar dextroscoliosis. Reviewed, dictated and finalized at location A. AL MEDIA ANALYST
--- NOTE | ~2024-06-22 | XR_ITS ---
EXAMINATION: XR thoracic spine 2V DATE: 06/22/2024 15:31 INDICATION: Dorsalgia, unspecified. TECHNIQUE: 3 views of thoracic spine on 4 radiographs were obtained. COMPARISON: Chest CT 01/12/2020 FINDINGS: There is thoracic kyphosis and 8 degrees levocurvature. Vertebral body heights are normal. There is interbody fusion at T8-T9. There is moderately decreased disc height from T5-T6 through T7-T 8 and at T9-T10. IMPRESSION: 1. Moderate thoracic spondylosis. 2. Thoracic kyphosis. Reviewed, dictated and finalized at location A. NG JOB SETTER
[2024-06-24 00:28] LABS: Amphetamines NEGATIVE ng/mL (<500); Barbiturates NEGATIVE ng/mL (<300); Benzodiazepines NEGATIVE ng/mL (<100); Cocaine Metabolite NEGATIVE ng/mL (<150); Marijuana Metabolite NEGATIVE ng/mL (<20); Methadone Metabolite NEGATIVE ng/mL (<100); Opiates POSITIVE ng/mL (<100); Oxidant NEGATIVE mcg/mL (<200); PCP NEGATIVE ng/mL (<25); pH 5.9 (4.5-9.0)
== END 2024-06-22 15:00 | disposition home or self-care (01) ==
PROVIDERS: PCP Family Medicine; Visit Provider Student in an Organized Health Care Education/Training Program
DX: M43.06 Spondylolysis, lumbar region (principal); M41.85 Other forms of scoliosis, thoracolumbar region; M43.04 Spondylolysis, thoracic region; G89.29 Other chronic pain; F11.90 Opioid use, unspecified, uncomplicated
CPT/HCPCS: 72070; 72100; 80307

== ENCOUNTER 2024-09-23 14:44 | Outpatient (CLI) | payer OTHER, SELFPAY ==
--- OUTSIDE RECORDS SUMMARY | 2024-09-23 14:47 | XMS_ITS | Clinical Summary ---
Author Organization [facility] Address [address] [place] [address] Phone Care Team Providers Care Ux Developer Name Role Phone My Atkins MD Primary Care Provider [phone]- [phone] Allergies Active Allergy Reactions Criticality Noted Date Comments Conjugated Estrogens Unknown 10/06/2017 Medications Medication Sig Dispensed Refills Start Date End Date Status Eliquis 2.5 MG tablet Take 1 tablet by mouth 2 (two) times a day 04/26/2021 Active aspirin 81 MG chewable tablet Chew 81 mg daily 09/25/2017 Act erin HYDROcodone-acetamino phen 10-325 MG per tablet Take 1 tablet by mouth every 8 (eight) hours if needed for pain 04/05/2021 Active metoprolol succinate XL (TOPROL-XL) 25 MG 24 hr tablet Take 25 mg by mouth 1 (one) time each day 03/06/2021 Active omeprazole (PriLOSEC) [address] capsule Take 20 mg by mouth 1 (one) time each day 03/06/2021 Active rOPINIRole (REQUIP) 0.5 MG tablet 04/13/2021 Active tolterodine (DETROL) 2 MG tablet Take 2 mg by mouth every 12 (twelve) hours 03/03/2021 Active Fluticasone-Umeclidin -Vilant 200-62.5-25 MCG/INH aerosol powder Inhale Active albuterol HFA (PROVENTIL HFA) 108 (90 Base) MCG/ACT inhaler INHALE 1 TO 2 PUFFS BY MOUTH EVERY 4 TO 6 HOURS NEEDED FOR SHORTNESS OF BREATH OR WHEEZING 03/17/2022 Active FLUoxetine (PROzac) 20 MG capsule Take 20 mg by mouth 1 (one) time each day 05/20/2022 Active Active Problems Problem Noted Date Diagnosed Date Edema, generalized 05/06/2021 Chronic kidney disease, Stage IV (severe) 2020 Myocardial infarction 05/03/2021 Resolved Problems Problem Noted Date Diagnosed Date Resolved Date Chronic kidney disease stage 3B 05/06/2021 05/06/2021 Immunizations Name Administration Dates Next Due Influenza TIV (IM) 04/17/2022,04/29/2021 Pneumococcal Conjugate 04/03/2017 Family History Medical History Relation Comments Kidney disease Neg Hx Social History Tobacco Use Types Packs/Day Years Used Date Smoking Tobacco: Former Smokeless Tobacco: Never Alcohol Use Standard Drinks/Week Comments Not Currently 0 (1 standard drink = 0.6 oz pur e alcohol) Sex and Gender Information Value Date Recorded Sex Assigned at Not on file Gender Identity Not on file Sexual Orientation Not on file Last Filed Vital Signs Vital Sign Reading Time Taken Comments Blood Pressure 118/64 05/28/2022 11:19 AM CDT Pulse 72 05/28/2022 11:19 AM CDT Temperature 36.1 C (97 F) 05/28/2022 11:19 AM CDT Respiratory Rate - - Oxygen Saturation - - Inhaled Oxygen Concentration - - Weight 65.3 kg (144 lb) 05/28/2022 11:19 AM CDT Height 162.6 cm (5' 4 ) 05/28/2022 11:19 AM CDT Body Mass Index 24.72 05/28/2022 11:19 AM CDT Plan of Treatment Health Maintenance Due Date Last Done Comments Pneumococcal PPSV23/PCV13 65 + Years / High and Highest Risk (1 of 4 - PCV) 1941 Influenza Vaccine (#1) 2024 04/17/2022, 2020 Care Teams Ux Developer Relationship Specialty Start Date End Date My Atkins MD [address] [facility] [address] [place] [address] PCP - General Internal Medicine 03/19/21
--- OUTSIDE RECORDS SUMMARY | 2024-09-23 14:47 | XMS_ITS | Encounter Summary ---
Author Organization [facility] Address [address] [place] [address] Phone Care Team Providers Care Funeral Home Makeup Artist Name Role Phone My Atkins MD Primary Care Provider +1- [phone] Encounter Details Date Type Department Care Team (Late st Contact Info) Description 01/20/2022 Telephone [facility] Nephrology and Hypertension [address] [facility], [address] [facility] [place] [address] Alirio Farias MD [address] [facility], [address] [place] [address] Social History Tobacco Use Types Packs/Day Years Used Date Smoking Tobacco: Former Smokeless Tobacco: Never Alcohol Use Standard Drinks/Week Comments Not Currently 0 (1 standard drink = 0.6 oz pur e alcohol) Sex and Gender Information Value Date Recorded Sex Assigned at Not on file Gender Identity Not on file Sexual Orientation Not on file documented as of this encounter Miscellaneous Notes * Telephone Encounter - Marcela Farias RN - 01/23/2022 8:55 AM CDT Labs faxed * Telephone Encounter - Alirio Farias MD - 01/20/2022 8:32 PM CDT ua and culture are positive. I called and couldn't get through. Will try again tomorrow. documented in this encounter Plan of Treatment Not on file documented as of this encounter Visit Diagnoses Not on filedocumented in this encounter Care Teams Funeral Home Makeup Artist Relationship Specialty Start Date End Date My Atkins MD [address] [facility] 162 [facility] 120 [place] [address] PCP - General Internal Medicine 03/19/21 documented as of this encounter
--- OUTSIDE RECORDS SUMMARY | 2024-09-23 14:47 | XMS_ITS | Referral Summary ---
Author Organization [facility] [address] Address [address] [place] [address] Care Team Providers Care Assistant To The President Name Role Phone My Atkins MD Primary Care Provider Allergies Active Allergy Reactions Criticality Noted Date Comments Conjugated Estrogens Unknown 10/06/2017 Medications lisinopril (PRINIVIL,ZESTRI L) 40 mg tablet Take 40 mg by mouth daily. 2 09/15/2017 Active omeprazole (PriLOSEC) 20 mg capsule Take 20 mg by mouth daily. 2 09/15/2017 Active FLUoxetine (PROzac) 40 mg capsule Take 40 mg by mouth daily. 0 09/15/[address] (CYMBALTA) 30 mg capsule Take 20 mg by mouth daily. 2 09/27/2017 Active metoprolol XL (TOPROL-XL) 25 mg 24 hr tablet Take 25 mg by mouth daily. 2 08/25/2017 Active HYDROcodone-acet aminophen (NORCO) 10-325 mg per tabletIndication s:Pain Take by mouth 3 (three) times a day. 0 08/28/2017 Active rOPINIRole (REQUIP) 0.5 mg tablet Take 0.5 mg by mouth daily. 11 09/26/2017 Active tolterodine (DETROL) 2 mg tablet Take 2 mg by mouth 2 (two) times a day. 1 09/19/2017 Active aspirin 81 mg chewable tablet Take 81 mg by mouth daily. 3 09/25/2017 Active atorvastatin (LIPITOR) 40 mg tablet Take 40 mg by mouth daily. 0 09/25/2017 Active Active Problems Problem Noted Date Diagnosed Date Non-STEMI (non-ST elevated myocardial infarction ) (CMS/HCC) Social History Tobacco Use Types Packs/Day Years Used Date Smoking Tobacco: Former Smokeless Tobacco: Never Alcohol Use Standard Drinks/Week Comments Yes 0 (1 standard drink = 0.6 oz pur e alcohol) Rarely Personal Safety Answer Date Recorded Getting School Help Needed Not on file 10/17 Comments Unknown Sex and Gender Information Value Date Recorded Sex Assigned at Not on file Legal Sex Female 12:49 PM ACTING MANAGER Gender Identity Not on file Sexual Orientation Not on file Last Filed Vital Signs Vital Sign Reading Time Taken Comments Blood Pressure 130/84 10/06/2017 1:09 PM ACTING MANAGER Pulse 74 10/06/2017 1:09 PM ACTING MANAGER Temperature 36.3 C (97.3 F) 02/13/2020 10:35 AM CDT Respiratory Rate - - Oxygen Saturation 97% 10/06/2017 1:09 PM ACTING MANAGER Inhaled Oxygen Concentration - - Weight 72.3 kg (159 lb 8 oz) 10/06/2017 1:09 PM ACTING MANAGER Height 162.6 cm (5' 4 ) 10/06/2017 1:09 PM ACTING MANAGER Body Mass Index 27.38 10/06/2017 1:09 PM ACTING MANAGER Plan of Treatment Not on [place] [address] [facility] [place] [address] Care Teams Assistant To The President Relationship Specialty Start Date End Date My Atkins MD [address] [facility] 120 [place] [address] PCP - General Family Medicine 09/25/17
--- OUTSIDE RECORDS SUMMARY | 2024-09-23 14:47 | XMS_ITS | Clinical Summary ---
Author Organization [facility] [address] Address [address] [place] [address] Care Team Providers Care Automotive Wholesale Parts Advisor Name Role Phone My Atkins MD Primary [...] Non-STEMI (non-ST elevated myocardial infarction ) (CMS/HCC) Surgical History Surgery Date Site/Laterality Comments ANKLE SURGERY KNEE SURGERY Medical History Medical History Date Comments Hypertension STEMI (ST elevation myocardial infarction) (HCC) COPD (chronic obstructive pulmonary disease) (HC C) Family History Medical History Relation Name Comments Stroke Mother Relation Name Status Comments Mother Social History Tobacco Use Types Packs/Day Years [...] on file Legal Sex Female 12:49 PM SPECIAL TESTER Gender Identity Not on file Sexual Orientation Not on file Obstetrics History Last Filed Vital Signs Vital Sign Reading Time Taken Comments Blood Pressure 130/84 10/06/2017 1:09 PM SPECIAL TESTER Pulse 74 10/06/2017 1:09 PM SPECIAL TESTER Temperature 36.3 C (97.3 F) 02/13/2020 10:35 AM CDT Respiratory Rate - - Oxygen Saturation 97% 10/06/2017 1:09 PM SPECIAL TESTER Inhaled Oxygen Concentration - - Weight 72.3 kg (159 lb 8 oz) 10/06/2017 1:09 PM SPECIAL TESTER Height 162.6 cm (5' 4 ) 10/06/2017 1:09 PM SPECIAL TESTER Body Mass Index 27.38 10/06/2017 1:09 PM SPECIAL TESTER Plan of Treatment Not on file Insurance [address] [place] [address] Care Teams Automotive Wholesale Parts Advisor Relationship Specialty Start Date End Date My Atkins MD [address] [facility] 120 [place] [address] PCP - General Family Medicine 09/25/17
[2024-09-23 15:11] LABS: Hemoglobin 9.1 g/dL (12.0-15.0); Mean Corpuscular HGB Conc 30.3 g/dl (32-36); Mean Corpuscular Hemoglobin 32.5 pg (26-34); Mean Corpuscular Volume 107.1 fl (80-100); Mean Platelet Volume 9.1 fl (7.4-10.4); Platelet Count Result 207 k/mm3 (150-375); Red Cell Distribution Width 14.4 % (11.5-14.5)
[2024-09-23 15:24] LABS: Albumin Level 3.5 g/dL (3.5-5.1); Anion Gap 12 mmol/L (4-12); Blood Urea Nitrogen 49 mg/dL (7-17); Calcium 8.7 mg/dL (8.4-10.2); Carbon Dioxide 23 mmol/L (22-30); Chloride 107 mmol/L (98-107); Estimated Glomerular Filt Rate 18; Glucose 124 mg/dL (65-110); Phosphorus 4.8 mg/dL (2.5-4.5); Potassium 4.5 mmol/L (3.4-5.0); Sodium 142 mmol/L (137-145)
[2024-09-23 15:27] LABS: Creatinine Urine 82.7 mg/dL; Total Protein Urine Random 37 mg/dL; Ur Ttl Prot Creatinine Ratio 0.45 mg/mg (0-0.20)
[2024-09-23 15:36] LABS: Parathyroid Intact 173.7 pg/mL (14.5-75.2)
== END 2024-09-23 14:45 | disposition home or self-care (01) ==
PROVIDERS: PCP Family Medicine; Visit Provider Internal Medicine Nephrology
DX: I12.9 Hypertensive chronic kidney disease with stage 1 through stage 4 chronic kidney disease, or unspecified chronic kidney disease (principal); N18.4 Chronic kidney disease, stage 4 (severe)
CPT/HCPCS: 36415; 80069; 82570; 83970; 84156; 85027

== ENCOUNTER 2024-12-31 22:28 | Emergency (ER) | payer OTHER, SELFPAY ==
--- NOTE | ~2024-12-31 | XR_ITS ---
EXAMINATION: XR foot LT min 3V DATE: 01/01/2025 00:00 INDICATION: Trauma to the left great toe. TECHNIQUE: Dorsoplantar, two oblique and lateral views of the affected foot were obtained. COMPARISON: None. FINDINGS: Diffuse osteopenia. Internal fixation likely for old fracture of the distal tibia and fibula with a retrograde lag screw at the medial malleolus and lateral plate and screw fixation along the distal fi bula. Bone alignment is normal. No acute fractures identified. 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 Mild soft tissue swelling over the dorsum of the forefoot. IMPRESSION: 1. No acute osseous abnormality. Sensitivity for nondisplaced fractures mildly decreased by diffuse o steopenia. Reviewed, dictated and finalized at location A. IMPRESSION: 1. No acute osseous abnormality. Sensitivity for nondisplaced fractures mildly decreased by diffuse osteopenia.
[2024-12-31 22:30] VITALS: BP 140/59; PULSE 68; RESP 18; TEMP 36.4; O2SAT 98
--- OUTSIDE RECORDS SUMMARY | 2024-12-31 22:31 | XMS_ITS | Referral Summary ---
Author Organization [facility] [address] Address [address] [place] [address] Care Team Providers Care Fire Extinguisher Repairer Inspector Name Role Phone My Atkins MD Primary [...] Date Non-STEMI (non-ST elevated myocardial infarction ) Social History Tobacco Use Types Packs/Day Years [...] on file Legal Sex Female 12:49 PM FILM COATER Gender Identity Not on file Sexual Orientation Not on file Last Filed Vital Signs Vital Sign Reading Time Taken Comments Blood Pressure 130/84 10/06/2017 1:09 PM FILM COATER Pulse 74 10/06/2017 1:09 PM FILM COATER Temperature 36.3 C (97.3 F) 02/13/2020 10:35 AM CDT Respiratory Rate - - Oxygen Saturation 97% 10/06/2017 1:09 PM FILM COATER Inhaled Oxygen Concentration - - Weight 72.3 kg (159 lb 8 oz) 10/06/2017 1:09 PM FILM COATER Height 162.6 cm (5' 4) 10/06/2017 1:09 PM FILM COATER Body Mass Index 27.38 10/06/2017 1:09 PM FILM COATER Plan of Treatment [place] [address] [facility] Care Teams Fire Extinguisher Repairer Inspector Relationship Specialty Start Date End Date My Atkins MD [address] [address] PCP - General Family Medicine 09/25/17
--- OUTSIDE RECORDS SUMMARY | 2024-12-31 22:31 | XMS_ITS | Continuity of Care Document ---
Author Organization [facility] Address [address] [place] [address] [place] [address] Phone Care Team Providers Care Curb Machine Operator Name Role Phone Guerrero STEIN CMPTLeroy Unavailable Unavailable Procedures Procedure Date PT RE-EVALUATION THERAPEUTIC EXERCISES NEUROMUSCULAR RE-ED FUNC ACTIVITY HOT/COLD PACK Carrying, Moving And Handling Objects-Di scharge Carrying, Moving And Handling Objects-Go al Medications Name Dose Freq Route DOC Jun THERAPEUTIC EXERCISES NEUROMUSCULAR RE-ED MANUAL THERAPY FUNC ACTIVITY HOT/COLD PACK THERAPEUTIC EXERCISES NEUROMUSCULAR RE-ED MANUAL THERAPY FUNC ACTIVITY HOT/COLD PACK PT RE-EVALUATION THERAPEUTIC EXERCISES NEUROMUSCULAR RE-ED FUNC ACTIVITY HOT/COLD PACK Carrying, Moving And Handling Objects-Cu rrent Carrying, Moving And Handling Objects-Go al THERAPEUTIC EXERCISES NEUROMUSCULAR RE-ED MANUAL THERAPY FUNC ACTIVITY HOT/COLD PACK THERAPEUTIC EXERCISES NEUROMUSCULAR RE-ED MANUAL THERAPY FUNC ACTIVITY HOT/COLD PACK THERAPEUTIC EXERCISES NEUROMUSCULAR RE-ED MANUAL THERAPY FUNC ACTIVITY HOT/COLD PACK Carrying, Moving And Handling Objects-Cu rrent Carrying, Moving And Handling Objects-Go al THERAPEUTIC EXERCISES NEUROMUSCULAR RE-ED MANUAL THERAPY FUNC ACTIVITY HOT/COLD PACK THERAPEUTIC EXERCISES NEUROMUSCULAR RE-ED MANUAL THERAPY FUNC ACTIVITY HOT/COLD PACK THERAPEUTIC EXERCISES NEUROMUSCULAR RE-ED MANUAL THERAPY FUNC ACTIVITY HOT/COLD PACK THERAPEUTIC EXERCISES NEUROMUSCULAR RE-ED MANUAL THERAPY FUNC ACTIVITY HOT/COLD PACK PT EVALUATION THERAPEUTIC EXERCISES NEUROMUSCULAR RE-ED MANUAL THERAPY Carrying, Moving And Handling Objects-Cu rrent Carrying, Moving And Handling Objects-Go al Medications Name Dose Freq Route DOC May Pain Assess Positive DOC 2013 BMI Normal and DOC 18-64 yo=18.5-25.0 65 + yo=23.0-30.0 Future Fall Risk Positive 2+ Falls or 1 Fall w/ Injury RA DOC Scre ened for Fall Risk Plan of Care DOC Functional Outcome Assessmen t documented, deficits identified, treatment plan es Advance Directives Directive Yes / No Effective Date File Name No Information Encounters Encounter Description Practice Location Reason(s) For Visit Diagnoses Date Provider Providers Copied on Encounter [facility] [address], [place], [place], [id number], [place] tel:[phone] [place] No Information Jun-2 0-201 4 josef Harper. [address] [facility], [address], [place], [address], [place]. tel: [phone] Referring Provider: My Atkins , [address] [facility], [place], [address]. tel:[phone], [id number], tel:[phone] [place] No Information 8201 4 Ghislainejacquieck Vaibhav. [address] [place] [address], [address], [place], [place], [facility], . tel: [phone] Referring Provider: My Atkins , [address] [facility], [place], [address]. tel:[phone], [id number], tel:[phone] [place] No Information 4 Muehl Leroy. [address] [place] [address], [address], [place], [facility], . tel: [phone] Referring Provider: My Atkins , [address] [facility], [place], [address]. tel:[phone], [id number], tel:[phone] [place] No Information 4 Muehl Leroy. [address] [place] [address], [address], [place], [facility], . tel: [phone] Referring Provider: My Atkins , [address] [facility], [place], [address]. tel:[phone], [id number], tel:[phone] [place] No Information 4 Muehl Leroy. [address] [place] [address], [address], [place], [place], [facility], . tel: [phone] Referring Provider: My Atkins , [address] [facility], [place], [address]. tel:[phone], [id number], tel:[phone] [place] No Information Jun-0 4 Muehl Leroy. [address] [place] [address], [address] [place] [address], [facility], . tel: [phone] Referring Provider: My Atkins , [address] [facility], [place], [address]. tel:[phone], [id number], tel:[phone] [place] No Information May-3 4 Ana Luisa Esposito. [address] [place] [address], [address] [place] [address], [facility], . tel: [phone] Referring Provider: My Atkins , [address] [place], [address]. tel:[phone], [id number], tel:[phone] [place] No Information 4 Muehl Leroy. [address] [place] [address] [place] [address], [facility], . tel: [phone] Referring Provider: My Atkins , [address] [place], [address]. tel:[phone], [id number], [place] tel:[phone] [place] No Information 4 Muehl Leroy. [address] [place] [address], [address] [place] [address], [facility], . tel: [phone] Referring Provider: My Atkins , [address] [place], [address]. tel:[phone], [id number], tel:[phone] [place] No Information 4 Guerrero Harper. [address] [facility], [address], [facility], . tel:[phone] Referring Provider: My Atkins , [address] [place], [place], [facility]. tel:[phone], [id number], tel:[phone] [place] No Information 4 Guerrero Harper. [address], [facility], . [phone] Referring Provider: My Atkins , [address] [place], [place], [facility]. tel:[phone], [id number], tel:[phone] [place] Pain in thoracic spineLumbago 4 Guerrero Harper. [address] [place] [address], [facility], . tel:[phone] Referring Provider: My Atkins , [address] [place], [address]. tel:[phone] Family History Family Member Type Diagnosis Age At Onset No Information Payers Payer name Insurance type Covered green party ID Authorsosaa amie(s) [employer] Insurance [place] [id number] Social History Type Description Quantity Date Captured Comments Sex Female Smoking Status No Information Chief Complaint And Reason For Visit No Information Reason For Referral Reason For Referral No Information History Of Present Illness Encounter Date Complaint History Of Prese nt Illness No Information Functional Status Date Functional Assessmen t No Information Instructions Date Instruction Additional Infor mation No Information Assessments Type Assessment Date No Information Patient Care Teams Name Effective Dates (start - stop) Status Members No Information
--- OUTSIDE RECORDS SUMMARY | 2024-12-31 22:31 | XMS_ITS | Encounter Summary ---
Author Organization [facility] Address [address] [place] [address] Phone Care Team Providers Care Food Processing Scientist Name Role Phone My Atkins MD Primary Care Provider [phone] Encounter Details Date Type Department Care Team (Late st Contact Info) Description 01/20/2022 Telephone [facility] Nephrology and Hypertension [address] [facility], [address] [facility] [place] [address] Alirio Farias MD [address] [facility], [address] [place] [address] Social History Tobacco Use Types Packs/Day Years Used Date Smoking Tobacco: Former Smokeless Tobacco: Never Alcohol Use Standard Drinks/Week Comments Not Currently 0 (1 standard drink = 0.6 oz pur e alcohol) Comments Unknown Sex and Gender Information Value Date Recorded Sex Assigned at Not on file Legal Sex Female 1:57 PM MDT Gender Identity Not on file Sexual Orientation [...] on filedocumented in this encounter Care Teams Food Processing Scientist Relationship Specialty Start Date End Date My Atkins MD [address] [facility] [address] [facility] 120 [place] [address] PCP - General Internal Medicine 03/19/21 documented as of this encounter
--- OUTSIDE RECORDS SUMMARY | 2024-12-31 22:31 | XMS_ITS | Clinical Summary ---
Author Organization [facility] Address [address] [place] [address] Phone Care Team Providers Care Client Solutions Manager Name Role Phone My Atkins MD Primary Care Provider [phone] Allergies Active Allergy Reactions Criticality Noted Date Comments Conjugated Estrogens Unknown 10/06/2017 Medications Eliquis 2.5 MG tablet Take 1 tablet by mouth 2 (two) times a day 1 Active aspirin 81 MG chewable tablet Chew 81 mg daily 8 Active HYDROcodone-sekou taminophen 10-325 MG per tablet Take 1 tablet by mouth every 8 (eight) hours if needed for pain 1 Active metoprolol succinate XL (TOPROL-XL) 25 MG 24 hr tablet Take 25 mg by mouth 1 (one) time each day 1 Active omeprazole (PriLOSEC) [address] capsule Take 20 mg by mouth 1 (one) time each day 1 Active rOPINIRole (REQUIP) 0.5 MG tablet 1 Active tolterodine (DETROL) 2 MG tablet Take 2 mg by mouth every 12 (twelve) hours 1 Active Fluticasone-Ume clidin-Vilant 200-62.5-25 MCG/INH aerosol powder Inhale Active albuterol HFA (PROVENTIL HFA) 108 (90 Base) MCG/ACT inhaler INHALE 1 TO 2 PUFFS BY MOUTH EVERY 4 TO 6 HOURS NEEDED FOR SHORTNESS OF BREATH OR WHEEZING 2 Active FLUoxetine (PROzac) 20 MG capsule Take 20 mg by mouth 1 (one) time each day 2 Active Active Problems Problem Noted Date Diagnosed Date Edema, generalized 05/06/2021 Chronic kidney disease, Stage IV (severe) 2020 Myocardial infarction 05/03/2021 Resolved Problems Problem Noted Date Diagnosed Date Resolved Date Chronic kidney disease stage 3B 05/06/2021 05/06/2021 Immunizations Immunization Administration Dates Next Due Influenza TIV (IM) [...] 11:19 AM CDT Height 162.6 cm (5' 4) 05/28/2022 11:19 AM CDT Body Mass Index 24.72 05/28/2022 11:19 AM CDT Plan of Treatment Health Maintenance Due Date Last Done Comments Pneumococcal PPSV23/PCV13 65 + Years / Low and Medium Risk (1 of 4 - PCV) 1986 Influenza Vaccine (Season Ended) 2025 04/17/20, 04/29/2021 Insurance [facility] MEDIC[facility] HMO Care Teams Client Solutions Manager Relationship Specialty Start Date End Date My Atkins MD [address] [facility] [address] [place] [address] PCP - General Internal Medicine 03/19/21
--- OUTSIDE RECORDS SUMMARY | 2024-12-31 22:31 | XMS_ITS | Clinical Summary ---
Author Organization [facility] [address] Address [address] [place] [address] Care Team Providers Care Aircraft Mechanic Name Role Phone My Atkins MD Primary [...] Date Non-STEMI (non-ST elevated myocardial infarction ) Surgical History Surgery Date Site/Laterality Comments ANKLE [...] on file Legal Sex Female 12:49 PM GAS FITTER Gender Identity Not on file Sexual Orientation Not on file Obstetrics History Last Filed Vital Signs Vital Sign Reading Time Taken Comments Blood Pressure 130/84 10/06/2017 1:09 PM GAS FITTER Pulse 74 10/06/2017 1:09 PM GAS FITTER Temperature 36.3 C (97.3 F) 02/13/2020 10:35 AM CDT Respiratory Rate - - Oxygen Saturation 97% 10/06/2017 1:09 PM GAS FITTER Inhaled Oxygen Concentration - - Weight 72.3 kg (159 lb 8 oz) 10/06/2017 1:09 PM GAS FITTER Height 162.6 cm (5' 4) 10/06/2017 1:09 PM GAS FITTER Body Mass Index 27.38 10/06/2017 1:09 PM GAS FITTER Plan of Treatment Not on file Insurance [id number] [place] [address] Care Teams Aircraft Mechanic Relationship Specialty Start Date End Date My Atkins MD [address] [facility] 120 [place] [address] PCP - General Family Medicine 09/25/17
--- NOTE | 2024-12-31 23:47 | PC.NURSE ---
Patients comes to intake desk and states patient normally wears oxygen most of the time, 2L via [place]. parking assistant notified, and patient taken to room 2 to be placed in oxygen.
[2024-12-31 23:56] VITALS: BP 136/79; PULSE 66; RESP 19; O2SAT 98
--- OUTSIDE RECORDS SUMMARY | 2025-01-01 01:07 | XMS_ITS | Clinical Summary ---
Author Organization [facility] Address [address] [place] [id number] Phone Care Team Providers Care Dynamometer Tester Engine Name Role Phone My Atkins MD Primary Care Provider [phone]- [phone] Allergies Active Allergy Reactions Criticality Noted Date [...] Vaccine (Season Ended) 2025 04/17/20, 04/29/2021 Insurance [facility] MEDICARE HMO Care Teams Dynamometer Tester Engine Relationship Specialty Start Date End Date My Atkins MD [address] [facility] [address] [place] [address] PCP - General Internal Medicine 03/19/21
--- OUTSIDE RECORDS SUMMARY | 2025-01-01 01:07 | XMS_ITS | Encounter Summary ---
Author Organization [facility] Address [address] [place] [address] Phone Care Team Providers Care Metal Drill Press Operator Name Role Phone My Atkins MD Primary Care Provider [phone]- [phone] Encounter Details Date Type Department Care Team (Late st Contact Info) Description 01/20/2022 Telephone [facility] Nephrology and Hypertension [address] [facility], [address] [facility] [place] [address] Alirio Farias MD [address] [facility], [address] [place] [address] Social History Tobacco Use Types Packs/Day Years [...] on filedocumented in this encounter Care Teams Metal Drill Press Operator Relationship Specialty Start Date End Date My Atkins MD [address] [facility] 162 [facility] 120 [place] [address] PCP - General Internal Medicine 03/19/21 documented as of this encounter
--- OUTSIDE RECORDS SUMMARY | 2025-01-01 01:07 | XMS_ITS | Clinical Summary ---
Author Organization [facility] [address] Address [address] [place] [address] Care Team Providers Care Bariatric Coordinator Name Role Phone My Atkins MD Primary [...] on file Legal Sex Female 12:49 PM GUEST SERVICES ATTENDANT Gender Identity Not on file Sexual Orientation Not on file Obstetrics History Last Filed Vital Signs Vital Sign Reading Time Taken Comments Blood Pressure 130/84 10/06/2017 1:09 PM GUEST SERVICES ATTENDANT Pulse 74 10/06/2017 1:09 PM GUEST SERVICES ATTENDANT Temperature 36.3 C (97.3 F) 02/13/2020 10:35 AM CDT Respiratory Rate - - Oxygen Saturation 97% 10/06/2017 1:09 PM GUEST SERVICES ATTENDANT Inhaled Oxygen Concentration - - Weight 72.3 kg (159 lb 8 oz) 10/06/2017 1:09 PM GUEST SERVICES ATTENDANT Height 162.6 cm (5' 4) 10/06/2017 1:09 PM GUEST SERVICES ATTENDANT Body Mass Index 27.38 10/06/2017 1:09 PM GUEST SERVICES ATTENDANT Plan of Treatment Not on file Insurance [id number] [place] [id number] Care Teams Bariatric Coordinator Relationship Specialty Start Date End Date My Atkins MD [address] [facility] 120 [place] [address] PCP - General Family Medicine 09/25/17
--- OUTSIDE RECORDS SUMMARY | 2025-01-01 01:07 | XMS_ITS | Continuity of Care Document ---
Author Organization [facility] Address [address] [place] [address] [place] [address] Phone Care Team Providers Care Electrical Machine Builder Name Role Phone Guerrero STEIN CMPTLeroy Unavailable [...] Date Provider Providers Copied on Encounter [facility] [address], [place], [place], [id number], [place] tel:[phone] Yulan No Information Jun-2 0-201 4 josef Harper. [address] [facility], [address], [place], [address], [place]. tel: [phone] Referring Provider: My Atkins , 2015 [facility], [place], [address]. tel:[phone], [id number], tel:[phone] Yulan No Information 8201 4 Ghislainejacquieck Vaibhav. [address] [place] [address], [address], [place], [place], [facility], . tel: [phone] Referring Provider: My Atkins , 2015 [facility], [place], [address]. tel:[phone], [id number], tel:[phone] Yulan No Information 4 Muehl Leroy. [address] [place] [address], [address], [place], [facility], . tel: [phone] Referring Provider: My Atkins , 2015 [facility], [place], [address]. tel:[phone], [id number], tel:[phone] Yulan No Information 4 Muehl Leroy. [address] [place] [address], [address], [place], [facility], . tel: [phone] Referring Provider: My Atkins , 2015 [facility], [place], [address]. tel:[phone], [id number], tel:[phone] Yulan No Information 4 Muehl Leroy. [address] [place] [address], [address], [place], [place], [facility], . tel: [phone] Referring Provider: My Atkins , 2015 [facility], [place], [address]. tel:[phone], [id number], tel:[phone] Yulan No Information Jun-0 4 Muehl Leroy. [address] [place] [address], [address] [place] [address], [facility], . tel: [phone] Referring Provider: My Atkins , 2015 [facility], [place], [address]. tel:[phone], [id number], tel:[phone] Yulan No Information May-3 4 Ana Luisa Esposito. [address] [place] [address], [address] [place] [address], [facility], . tel: [phone] Referring Provider: My Atkins , [address] [place], [address]. tel:[phone], [id number], tel:[phone] Yulan No Information 4 Muehl Leroy. [address] [place] [address] [place] [address], [facility], . tel: [phone] Referring Provider: My Atkins , [address] [place], [address]. tel:[phone], [id number], [place] tel:[phone] Yulan No Information 4 Muehl Leroy. [address] [place] [address], [address] [place] [address], [facility], . tel: [phone] Referring Provider: My Atkins , [address] [place], [address]. tel:[phone], [id number], tel:[phone] Yulan No Information 4 Guerrero Harper. [address] [facility], [address], [facility], . tel:[phone] Referring Provider: My Atkins , [address] [place], [place], [facility]. tel:[phone], [id number], tel:[phone] Yulan No Information 4 Guerrero aHrper. [address], [facility], . [phone] Referring Provider: My Atkins , [address] [place], [place], [facility]. tel:[phone], [id number], tel:[phone] Yulan Pain in thoracic spineLumbago 4 Guerrero Harper. [address] [place] [address], [facility], . tel:[phone] Referring Provider: My Atkins , [address] [place], [address]. tel:[phone] Family History Family Member Type Diagnosis Age At Onset No Information Payers Payer name Insurance type Covered republican ID [id number] amie(s) [employer] CI [id number] Social History Type Description Quantity Date Captured [...]
--- OUTSIDE RECORDS SUMMARY | 2025-01-01 01:07 | XMS_ITS | Referral Summary ---
Author Organization [facility] [address] Address [address] [place] [address] Care Team Providers Care Silica Spray Mixer Name Role Phone My Atkins MD Primary [...] on file Legal Sex Female 12:49 PM MANAGER MECHANICAL Gender Identity Not on file Sexual Orientation Not on file Last Filed Vital Signs Vital Sign Reading Time Taken Comments Blood Pressure 130/84 10/06/2017 1:09 PM MANAGER MECHANICAL Pulse 74 10/06/2017 1:09 PM MANAGER MECHANICAL Temperature 36.3 C (97.3 F) 02/13/2020 10:35 AM CDT Respiratory Rate - - Oxygen Saturation 97% 10/06/2017 1:09 PM MANAGER MECHANICAL Inhaled Oxygen Concentration - - Weight 72.3 kg (159 lb 8 oz) 10/06/2017 1:09 PM MANAGER MECHANICAL Height 162.6 cm (5' 4) 10/06/2017 1:09 PM MANAGER MECHANICAL Body Mass Index 27.38 10/06/2017 1:09 PM MANAGER MECHANICAL Plan of Treatment Not [place] [id number] [facility] Care Teams Silica Spray Mixer Relationship Specialty Start Date End Date My Atkins MD [address] [address] PCP - General Family Medicine 09/25/17
[2025-01-01] MEDS: MORPHINE SULFATE (*CRX) 15 MG TAB IR PO (01:36)
--- NOTE | 2025-01-01 02:03 | ED_ITS ---
HPI - Extremity Injury (Lower) General Chief Complaint: Extremity Injury, Lower Stated Complaint: Pain to left foot/big toe-hit foot of bed Time Seen by Provider: 01/01/25 00:28 History of Present Illness HPI Narrative: 89-year-old female presenting to the ER after stubbing her left toe. She states she was using her bedside commode when she got up and stubbed against the iron for him of her bed. She states that she had significant hardware placed into her left ankle before and wants to make sure she did not break anything. Her injury is isolated to the left great toe and did not strike her ankle. She normally ambulates with a roller and has no restricted range of motion or ne uropathy from previous injuries. Denies any other falls or injury. No head trauma. She is acting appropriately and not in any distress. Related Data Home Medications ?Medication ?Instructions ?Recorded ?Confirmed ?Last Taken ?Type melatonin 5 mg capsule 5 mg PO HS 06/07/19 12/02/24 04/02/22 History cholecalciferol (vitamin D3) 25 25 mcg PO DAILY 02/18/23 12/02/24 Unknown History mcg (1,000 unit) tablet ferrous sulfate 325 mg (65 mg 325 mg PO DAILY 02/18/23 12/02/24 Unknown History iron) tablet Allergies Allergy/AdvReac Type Severity Reaction Status Date / Time Estrogens Allergy Severe Swelling Verified 12/02/24 09:34 alendronate sodium AdvReac Unknown vomit Verified 12/02/24 09:34 ibandronate sodium AdvReac Unknown nausea Verified 12/02/24 09:34 raloxifene AdvReac Unknown nausea Verified 12/02/24 09:34 sulfamethizole AdvReac Unknown Nausea And Verified 12/02/24 09:34 Vomiting trimethoprim AdvReac Unknown Nausea And Verified 12/02/24 09:34 Vomiting Review of Systems Review of Systems: As reviewed above in HPI [facility] Past Medical History Medical History BMI 28.0-28.9,adult Low blood pressure Bibasilar crackles Renovascular hypertension Dysphagia BPV (benign positional vertigo) SOLOMON (acute kidney injury) Chronic anemia Non-STEMI (non-ST elevated myocardial infarction) September [address] demonstrated no evidence of coronary artery disease Polymyalgia rheumatica Bacteriuria with pyuria DVT (deep venous thrombosis) Nonocclusive thrombus of the left popliteal vein and left proximal femoral vein 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 Diastolic dysfunction Echocardiogram 02/2020: Mild concentric left ventricular hypertrophy, grade 1 diastolic dysfunction, EF 67%, right ventricular systolic pressure could not be estimated due to inadequate visualization Chronic respiratory failure with hypoxia, on home O2 therapy PFTs 02/2020 demonstrating moderate to severe restrictive ventilatory defect with combined obstructive defect and moderate reduced diffusion capacity Atonic neurogenic bladder Acute kidney injury superimposed on chronic kidney disease Chronic kidney disease with active medical management without dialysis, stage 4 (severe) With baseline creatinine between 1.6-2.1 since 2020 Dehydration Nausea & vomiting Abdominal pain Overweight (BMI 25.0-29.9) GERD (gastroesophageal reflux disease) Debility Major depressive disorder, recurrent, moderate O2 dependent Mixed hyperlipidemia Dysphagia EGD 05/2021 demonstrating gastritis, hiatal hernia and had empiric esophageal dilatation HTN (hypertension) Dry mouth Thrombophlebitis leg Sleep disturbance Opioid dependence Acute DVT (deep venous thrombosis) Incontinence in female Osteoporosis DEXA scan 04/2021 History of fracture of left ankle Gait instability Weakness Inflammatory arthropathy SOB (shortness of breath) Chronic obstructive pulmonary disease with (acute) exacerbation Surgical History Surgical History History of tonsillectomy Status post open reduction with internal fixation of fracture Left patella Status post cataract extraction of both eyes with insertion of intraocular lens History of colonoscopy with polypectomy (~2012) History of cardiac catheterization (09/2017) No significant coronary artery disease History of total hysterectomy with bilateral salpingo-oophorectomy (BSO) Status post open reduction with internal fixation (ORIF) of fracture of ankle Left ankle Family History Family History Mother Cerebrovascular accident, Onset Age: 61 CHF (congestive heart failure) Daughter Multiple sclerosis Both daughters Other Hypertension Social History Social History Social History: The patient smoked up to 2 packs of cigarettes per day for 30 years but quit smoking in 1985. Code status: Patient would not want CPR. She really is uncertain if she would even want intubated but she is willing to give a short trial of intubation and try. She would not want a trach or PEG. Surrogate decision maker: David () Smoking packs per day: 1 Smoking cigarettes per day: 20.0 Years smoked: 30 Smoking pack-years: 30.00 Smoking status: Former smoker Tobacco type: cigarettes Second hand tobacco smoke exposure: No Alcohol intake: never Substance use: never Substance use type: does not use Do You Feel Safe in your Home?: Yes Lack of Transportation: No Lack of Food: Never True Current Housing: I Have Housing Concerned About Future Housing: No Difficulty Paying Gas/Electric Bills: No Difficulty Paying for Meds: No Currently Unemployed: No Education: High School Diploma/GED Difficulty w/ Childcare or Family Care: No Living arrangements: with family Additional living arrangements comments: with sp Occupation/Education: retired Additional occupation/education comments: 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 Gender identity (if verbalized by the patient): Female Sexual Orientation (if Verbalized by the Patient): Straight or Heterosexual Spiritual care concerns: No Exam Narrative: GENERAL: [Well-appearing, well-nourished, and in no acute distress.] HEAD: [Normocephalic, atraumatic.] EYES: [PERRLA and EOMI.] ENT: Nares clear, no rhinorrhea or epistaxis. Mucous membranes moist. NECK: Supple. CHEST: [Clear to auscultation. No respiratory distress.] HEART: [Regular rate and rhythm]. No murmur heard. [Normal peripheral pulses.] ABDOMEN: [Soft, nondistended], [nontender], [No rigidity or guarding] EXTREMITIES: Previous surgical scars to the left lower extremity, good range of motion at the ankle and toes. Full strength 5/5 of the ankle. Able to lift leg and hold extensor mechanism. Ambulation was deferred as we do not have patient's roller. Tenderness along the distal phalanx of the left great toe but no overlying skin changes swelling or breakdown. No laceration. SKIN: Warm, dry, no rash. NEURO: [No focal deficits]. Alert and oriented [x3.] PSYCH: [Normal mood and affect.] Course Vital Signs Vital signs: Vital Signs Temperature 36.4 C L 12/31/24 22:30 Pulse Rate 68 12/31/24 22:30 Respiratory Rate 18 12/31/24 22:30 Blood Pressure 140/59 L 12/31/24 22:30 Pulse Oximetry 98 12/31/24 22:30 Oxygen Delivery Room Air 12/31/24 22:30 Temperature 36.4 C L 12/31/24 22:30 Pulse Rate 69 01/01/25 04:03 Respiratory Rate 17 01/01/25 04:03 Blood Pressure 129/78 01/01/25 04:03 Pulse Oximetry 99 01/01/25 04:03 Oxygen Delivery Room Air 01/01/25 02:42 MDM - Extremity Injury (Lower) MDM Narrative Medical decision making narrative: 89-year-old female presenting after she stubbed her foot on the bed. She did not fall or injure herself otherwise. She has had previous hardware in that foot and wants to make sure valdez 10 injury. She has isolated pain in the great toe on the distal phalanx. No overlying skin changes, swelling, breakdown, ecchymoses. Good range of motion. Normal vital signs and well-perfused extremity. Examination reveals surgical scars to the left lower extremity, good range of motion at the ankle and toes. Full strength 5/5 of the ankle. Able to lift leg and hold extensor mechanism. Ambulation was deferred as we do not have patient's roller. Tenderness along the distal phalanx of the left great toe but no overlying skin changes swelling or breakdown. No laceration. Patient provided p.o. morphine for analgesia an x-ray was obtained which shows no acute osseous or traumatic injuries. No abnormal alignment. No injury involving the 1st digit. Osteopenia and prior ORIF visualized without injury. Patient is safe for discharge with family at bedside. Medical Records Attestation: I reviewed the patient's medical records. Imaging Data Attestation: I personally reviewed and interpreted this imaging study as follows: My impression: Acute traumatic injury or malalignment. Previous ORIF. Discharge Plan Discharge Clinical Impression: Injury of toe on left foot Patient Disposition: Home Condition: Stable Instructions: Antibiotic Form, Metatarsalgia (DC) Additional Instructions: You did not sustain any injury or traumatic findings and your x-ray. Your hardware from previous surgeries is intact. Take Tylenol and ibuprofen for pain control, apply ice to the toe for pain and swelling. Return with any emergencies. Patient Language: [place]ican Prescriptions: No Action calcium acetate(phosphat bind) 667 mg tablet 667 mg PO TIDWMEAL Qty: 90 8RF naloxone [Narcan] 4 mg/actuation spray,non-aerosol 1 spray intranasal Q2-3M PRN (Reason: opioid overdose) Qty: 2 0RF Rx Instructions: spray 1 dose into ONE nostril; alternate nostrils w each dose until help arrives cholecalciferol (vitamin D3) 25 mcg (1,000 unit) tablet 25 mcg PO DAILY ferrous sulfate 325 mg (65 mg iron) tablet 325 mg PO DAILY melatonin 5 mg capsule 5 mg PO HS albuterol sulfate 90 mcg/actuation HFA aerosol inhaler 1 - 2 puff inhalation Q4-6H PRN (Reason: shortness of breath or wheezing) Qty: 8.5 2RF omeprazole 20 mg capsule,delayed release(DR/EC) See Rx Instructions .ROUTE .COMPLEX Qty: 180 0RF Dose Instruction: TAKE 1 CAPSULE BY MOUTH TWICE DAILY Rx Instructions: TAKE 1 CAPSULE BY MOUTH TWICE DAILY Eliquis 2.5 mg tablet See Rx Instructions .ROUTE .COMPLEX Qty: 180 1RF Dose Instruction: TAKE 1 TABLET BY MOUTH TWICE DAILY Rx Instructions: TAKE 1 TABLET BY MOUTH TWICE DAILY metoprolol succinate 25 mg tablet extended release 24 hr See Rx Instructions .ROUTE .COMPLEX Qty: 90 1RF Dose Instruction: TAKE 1 TABLET BY MOUTH DAILY Rx Instructions: TAKE 1 TABLET BY MOUTH DAILY Trelegy Ellipta 100-62.5-25 mcg blister with device See Rx Instructions .ROUTE .COMPLEX Qty: 60 2RF Dose Instruction: INHALE 1 PUFF BY MOUTH DAILY Rx Instructions: INHALE 1 PUFF BY MOUTH DAILY ropinirole 0.5 mg tablet See Rx Instructions .ROUTE .COMPLEX Qty: 100 1RF Dose Instruction: TAKE 1 TABLET BY MOUTH EVERY DAY AT BEDTIME Rx Instructions: TAKE 1 TABLET BY MOUTH EVERY DAY AT BEDTIME fluoxetine 20 mg capsule See Rx Instructions .ROUTE .COMPLEX Qty: 90 1RF Dose Instruction: TAKE 1 CAPSULE BY MOUTH DAILY Rx Instructions: TAKE 1 CAPSULE BY MOUTH DAILY hydrocodone-acetaminophen 7.5-325 mg tablet 1 tablet PO Q8H PRN (Reason: pain) Qty: 90 0RF Follow-up/Referrals: Fabiano Huynh MD [Primary Care Provider] - Time of Disposition: 02:09
[2025-01-01 02:30] VITALS: BP 129/78; PULSE 69; RESP 17; O2SAT 99
[2025-01-01 02:42] VITALS: O2SAT 99
[2025-01-01 04:03] VITALS: BP 129/78; PULSE 69; RESP 17; O2SAT 99
== END 2025-01-01 02:40 | disposition home or self-care (01) ==
PROVIDERS: Emergency Provider Student in an Organized Health Care Education/Training Program; PCP Family Medicine
DX: S99.922A Unspecified injury of left foot, initial encounter (principal); W22.03XA Walked into furniture, initial encounter; Z86.718 Personal history of other venous thrombosis and embolism; J96.11 Chronic respiratory failure with hypoxia; Z99.81 Dependence on supplemental oxygen; N18.4 Chronic kidney disease, stage 4 (severe); K21.9 Gastro-esophageal reflux disease without esophagitis; E78.2 Mixed hyperlipidemia; M81.0 Age-related osteoporosis without current pathological fracture; Z87.891 Personal history of nicotine dependence
CPT/HCPCS: 73630; 99283; A9270

== ENCOUNTER 2025-02-09 15:50 | Outpatient (CLI) | payer OTHER, SELFPAY ==
[2025-02-09 16:25] LABS: Hematocrit 33.0 % (37.0-47.0); Hemoglobin 10.0 g/dL (12.0-15.0); Mean Corpuscular HGB Conc 30.3 g/dl (32-36); Mean Corpuscular Hemoglobin 32.6 pg (26-34); Mean Corpuscular Volume 107.5 fl (80-100); Platelet Count Result 243 k/mm3 (150-375); Red Blood Count 3.07 M/mm3 (4.2-5.4); White Blood Count 6.0 K/mm3 (4.5-10.0)
[2025-02-09 16:45] LABS: Albumin Level 4.1 g/dL (3.5-5.1); Anion Gap 10 mmol/L (4-12); Blood Urea Nitrogen 42 mg/dL (7-17); Calcium 9.1 mg/dL (8.4-10.2); Carbon Dioxide 22 mmol/L (22-30); Chloride 108 mmol/L (98-107); Cholesterol 184 mg/dL (0-200); Estimated Glomerular Filt Rate 19; Glucose 97 mg/dL (65-110); HDL Direct 40 mg/dL; Iron 54 ug/dL (37-170); Potassium 4.9 mmol/L (3.4-5.0); Sodium 140 mmol/L (137-145); Triglycerides 147 mg/dL (<150)
[2025-02-09 16:54] LABS: Percent Iron Saturation 17 % (20-50)
[2025-02-09 16:57] LABS: Parathyroid Intact 163.5 pg/mL (14.5-75.2)
[2025-02-09 17:26] LABS: Ferritin 33.20 ng/mL (11.1-264)
[2025-02-09 17:57] LABS: Total Protein Urine Random 43 mg/dL; Ur Ttl Prot Creatinine Ratio 0.62 mg/mg (0-0.20)
== END 2025-02-09 15:51 | disposition home or self-care (01) ==
LOC: ANHLAB 15:51
PROVIDERS: PCP Family Medicine; Visit Provider Internal Medicine Nephrology
DX: E78.5 Hyperlipidemia, unspecified (principal); D63.1 Anemia in chronic kidney disease; I12.9 Hypertensive chronic kidney disease with stage 1 through stage 4 chronic kidney disease, or unspecified chronic kidney disease; N18.4 Chronic kidney disease, stage 4 (severe)
CPT/HCPCS: 36415; 80061; 80069; 82570; 82728; 83540; 83550; 83970; 84156; 85027

== ENCOUNTER 2025-06-17 12:48 | Outpatient (CLI) | payer OTHER, SELFPAY ==
[2025-06-17 14:10] LABS: Hematocrit 32.7 % (37.0-47.0); Hemoglobin 10.0 g/dL (12.0-15.0); Mean Corpuscular HGB Conc 30.6 g/dl (32-36); Mean Corpuscular Hemoglobin 33.0 pg (26-34); Mean Corpuscular Volume 107.9 fl (80-100); Platelet Count Result 233 k/mm3 (150-375); Red Blood Count 3.03 M/mm3 (4.2-5.4); White Blood Count 6.2 K/mm3 (4.5-10.0)
[2025-06-17 14:20] LABS: Total Protein Urine Random 28 mg/dL; Ur Ttl Prot Creatinine Ratio 0.52 mg/mg (0-0.20)
[2025-06-17 14:23] LABS: Albumin Level 3.9 g/dL (3.5-5.1); Anion Gap 9 mmol/L (4-12); Blood Urea Nitrogen 41 mg/dL (7-17); Calcium 8.9 mg/dL (8.4-10.2); Carbon Dioxide 22 mmol/L (22-30); Chloride 108 mmol/L (98-107); Estimated Glomerular Filt Rate 19; Glucose 141 mg/dL (65-110); Potassium 4.5 mmol/L (3.4-5.0); Sodium 139 mmol/L (137-145)
[2025-06-17 14:34] LABS: Parathyroid Intact 145.4 pg/mL (14.5-75.2)
== END 2025-06-17 12:49 | disposition home or self-care (01) ==
PROVIDERS: PCP Family Medicine; Visit Provider Internal Medicine Nephrology
DX: I10 Essential (primary) hypertension (principal)
CPT/HCPCS: 36415; 80069; 82570; 83970; 84156; 85027